=== PATIENT | male | born 1955 | race Caucasian/White ===

== ENCOUNTER 2016-12-29 07:47 | Emergency (ER) | payer MEDICARE ==
[2016-12-29] MEDS ORDERED: Sodium Chloride 0.9% 10 ML Syringe FLUSH PRN (08:02)
--- NOTE | 2016-12-29 08:14 | EDM.PDOC ---
ED HPI GENERAL MEDICAL PROBLEM - General Chief Complaint: Gastrointestinal Problem Stated Complaint: GI bleed Time Seen by Provider: 12/29/16 08:00 Source of Information: Reports: Patient History Limitations: Reports: No Limitations - History of Present Illness INITIAL COMMENTS - FREE TEXT/NARRATIVE: This is a 61yo M here for complaint of a GI Bleed. He has had this in the past. Patient states he has had upper GI bleeding from abdominal ulcers. Patient states he started feeling chills and sob yesterday and then this am had a BM with loose stools then a lot of dark blood in the Onset: Sudden Duration: Day(s):, Getting Worse Severity: Moderate Improves with: Reports: None Worsens with: Reports: None Associated Symptoms: Reports: No Other Symptoms - Related Data Allergies Allergy/AdvReac Type Severity Reaction Status Date / Time alprazolam [From Xanax] Allergy Intermediate Delusions Verified 12/29/16 08:38 Home Meds: Home Meds Allopurinol [Allopurinol] 300 mg PO DAILY PRN 06/17/14 [History] Carvedilol [Carvedilol] 1 tab PO BIDMEALS 06/17/14 [History] Nitroglycerin [Nitrostat] 1 tab SL ASDIRECTED PRN 06/17/14 [History] Omeprazole [Omeprazole] 20 mg PO BID 06/17/14 [History] Potassium Chloride 20 tab PO DAILY 06/17/14 [History] QUEtiapine Fumarate [Quetiapine Fumarate] 400 mg PO QPM 06/17/14 [History] traMADol HCl [Tramadol HCl] 50 mg PO TID PRN 06/17/14 [History] Bumetanide [Bumex] 1 mg PO DAILY 08/07/16 [History] LORazepam 0.5 mg PO TID 08/07/16 [History] Amiodarone [Cordarone] 200 mg PO DAILY 12/29/16 [History] Docusate Sodium [Doc-Q-Lace] 200 mg PO BID 12/29/16 [History] Lisinopril 2.5 mg PO DAILY 12/29/16 [History] atorvaSTATin [Lipitor] 10 mg PO DAILY 12/29/16 [History] Past Medical History HEENT History: Reports: Impaired Vision, Other (See Below) Other HEENT History: nearsighted and farsighted Cardiovascular History: Reports: Heart Failure, Hypertension, Pacemaker, Stents Respiratory History: Reports: COPD, Other (See Below) Other Respiratory History: Emphysema Gastrointestinal History: Reports: GI Bleed, PUD Genitourinary History: Reports: Renal Disease Musculoskeletal History: Reports: Arthritis, Back Pain, Chronic, Fracture, Neck Pain, Chronic Neurological History: Reports: TIA, Other (See Below) Other Neuro History: nerve damage because of the accident Psychiatric History: Reports: Anxiety Endocrine/Metabolic History: Reports: Diabetes, Type II - Infectious Disease History Infectious Disease History: Reports: Hepatitis C, Mumps - Past Surgical History Cardiovascular Surgical History: Reports: Carotid Stents Social & Family History - Family History Family Medical History: Noncontributory - Tobacco Use Smoking Status *Q: Current Every Day Smoker Years of Tobacco use: 50 Packs/Tins Daily: 1 Used Tobacco, but Quit: No - Caffeine Use Caffeine Use: Reports: Coffee - Alcohol Use Days Per Week of Alcohol Use: 0 - Recreational Drug Use Recreational Drug Use: No - Living Situation & Occupation Living situation: Reports: , Other Occupation: Disabled ED ROS GENERAL - Review of Systems Review Of Systems: ROS reveals no pertinent complaints other than HPI. ED EXAM, GI/ABD - Physical Exam Exam: See Below Exam Limited By: No Limitations General Appearance: Alert, WD/WN, Mild Distress Eyes: Bilateral: EOMI Ears: Normal External Exam Nose: Normal Inspection Throat/Mouth: Normal Inspection Head: Atraumatic, Normocephalic Neck: Normal Inspection Respiratory/Chest: No Respiratory Distress, Normal Breath Sounds, Decreased Breath Sounds Cardiovascular: Normal Peripheral Pulses, Regular Rate, Rhythm GI/Abdominal: Soft, Non-Tender, Hyperactive Bowel Sounds Back Exam: Normal Inspection Extremities: Normal Inspection Neurological: Alert, Oriented, CN II-XII Intact Psychiatric: Anxious Skin Exam: Warm, Dry, Intact EKG INTERPRETATION EKG Date: 12/29/16 Time: 08:11 (57seconds) ST-T: Elevated Comparison: No Change EKG Interpretation Comments: Consulted Dr. [employer] Emiliano Woodson and faxed Prior and current EKG. She stated there is no acute change and that this is a persistently elevated ST elevation. Course - Orders/Labs/Meds Orders: Active Orders 24 hr Category Date Time Status EKG Documentation Completion [RC] ASDIRECTED Care 12/29/16 08:03 Active Fecal Occult Blood Collection [RC] ASDIRECTED Care 12/29/16 08:33 Active Abdomen Pelvis wo Cont [CT] Stat Exams 12/29/16 08:03 Taken Chest 1V Frontal [CR] Stat Exams 12/29/16 08:05 Taken Peripheral IV Insertion Adult [OM.PC] Routine Oth 12/29/16 08:02 Ordered Labs: Laboratory Tests 12/29/16 12/29/16 12/29/16 Range/Units 08:15 08:20 08:20 WBC 14.8 H (4.0-11.0) K/uL RBC 3.66 L (4.50-6.50) M/uL Hgb 10.9 L (13.0-18.0) g/dL Hct 33.8 L (40.0-54.0) % MCV 92 (76-96) fL MCH 29.8 (27.0-32.0) pg MCHC 32.2 (31.0-35.0) g/dL RDW 16.8 H (11.0-16.0) % Plt Count 325 D (150-400) K/uL MPV 9.6 (6.0-10.0) fL Neut % (Auto) 71.5 H (45.0-70.0) % Lymph % (Auto) 20.4 (20.0-40.0) % [place] % (Auto) 6.8 (3.0-10.0) % Eos % (Auto) 1.1 (1.0-5.0) % Baso % (Auto) 0.2 (0.0-0.5) % Neut # (Auto) 10.58 H (2.00-7.50) K/uL Lymph # (Auto) 3.01 (1.50-4.00) K/uL [place] # (Auto) 1.01 H (0.20-0.80) K/uL Eos # (Auto) 0.16 (0.04-0.40) K/uL Baso # (Auto) 0.03 (0.02-0.10) K/uL PT 10.1 (9.0-11.5) sec INR 1.0 (1.0-3.5) Sodium 140 (136-145) mmol/L Potassium 4.5 (3.5-5.1) mmol/L Chloride 101 (98-107) mmol/L Carbon Dioxide 29.3 (21.0-32.0) mmol/L Anion Gap 14.2 (5.0-15.0) mmol/L BUN 31 H D (8-26) mg/dL Creatinine 1.58 H (0.70-1.30) mg/dL Est Cr Clr Drug Dosing TNP Estimated GFR (MDRD) 45 L (>60) MLS/MIN BUN/Creatinine Ratio 19.6 (6-25) Glucose 173 H D (74-100) mg/dL Calcium 8.4 L (8.5-10.1) mg/dL Total Bilirubin 0.2 D (0.0-1.0) mg/dL AST 19 (15-37) U/L ALT 15 (12-78) U/L Alkaline Phosphatase 126 H (46-116) U/L Troponin I 0.038 D (0.000-0.060) ng/mL B-Natriuretic Peptide 3092 H D (0-125) pg/mL Total Protein 6.4 (6.4-8.2) g/dL Albumin 2.5 L (3.4-5.0) g/dL Globulin 3.9 (2.2-4.2) g/dL Albumin/Globulin Ratio 0.6 L (0.8-2.0) Triglycerides 202 H D (30-150) mg/dL Cholesterol 167 D (120-200) mg/dL LDL Cholesterol, Calc 95 (0-130) mg/dL HDL Cholesterol 32 L (40-60) mg/dL Cholesterol/HDL Ratio 5.2 H (0.0-5.0) Meds: Medications Discontinued Medications Generic Name Dose Route Start Last Admin Trade Name Freq PRN Reason Stop Dose Admin Diatrizoate Meglum/Diatrizoate Sod 30 ml 12/29/16 08:15 12/29/16 08:28 Gastrografin 37% PO 30 ml . DIRECTED GIACOMO Administration Lorazepam 1 mg 12/29/16 12:30 Ativan IM 12/30/16 07:00 ONETIME PRN Agitation Ondansetron HCl Confirm 12/29/16 08:53 12/29/16 08:50 Zofran Administered 12/29/16 08:54 8 mg Dose Administration 8 mg .ROUTE .STK-MED ONE Sodium Chloride 10 ml 12/29/16 08:02 12/29/16 08:20 Saline Flush FLUSH 10 ml ASDIRECTED PRN Administration Keep Vein Open Departure - Departure Time of Disposition: 13:00 Disposition: DC/Tfer to Acute Hospital 02 Condition: Undetermined Clinical Impression: Anxiety, Anemia associated with acute blood loss, Lightheadedness COPD (chronic obstructive pulmonary disease) Qualifiers: COPD type: unspecified COPD Qualified Code(s): J44.9 - Chronic obstructive pulmonary disease, unspecified Congestive heart failure Qualifiers: Congestive heart failure type: unspecified congestive heart failure type Congestive heart failure chronicity: unspecified congestive heart failure chronicity Qualified Code(s): I50.9 - Heart failure, unspecified GI bleeding Qualifiers: GI bleed type/associated pathology: melena Qualified Code(s): K92.1 - Melena - Discharge Information Referrals: PCP,Unknown [Primary Care Provider] - Forms: ED Department Discharge - Problem List & Annotations (1) Anxiety SNOMED Code(s): 21427773 Code(s): F41.9 - ANXIETY DISORDER, UNSPECIFIED Status: Chronic Priority: High (2) Congestive heart failure SNOMED Code(s): 92388955 Code(s): I50.9 - HEART FAILURE, UNSPECIFIED Status: Chronic Priority: High Annotation/Comment:: 08/07/16 - 1. Congestive heart failure, 2. Chronic obstructive pulonary disease, 3. Possible early stage sepsis Qualifiers: Congestive heart failure type: unspecified congestive heart failure type Congestive heart failure chronicity: unspecified congestive heart failure chronicity Qualified Code(s): I50.9 - Heart failure, unspecified (3) COPD (chronic obstructive pulmonary disease) SNOMED Code(s): 77996913 Code(s): J44.9 - CHRONIC OBSTRUCTIVE PULMONARY DISEASE, UNSPECIFIED Status : Chronic Priority: High Annotation/Comment:: 08/07/16 - 1. Congestive heart failure, 2. Chronic obstructive pulonary disease, 3. Possible early stage sepsis Qualifiers: COPD type: unspecified COPD Qualified Code(s): J44.9 - Chronic obstructive pulmonary disease, unspecified (4) Anxiety SNOMED Code(s): 46361526 Code(s): F41.9 - ANXIETY DISORDER, UNSPECIFIED Status: Chronic Priority: High (5) Anemia associated with acute blood loss SNOMED Code(s): 570143532 Code(s): D62 - ACUTE POSTHEMORRHAGIC ANEMIA Status: Acute Priority: High (6) GI bleeding SNOMED Code(s): 86677055 Code(s): K92.2 - GASTROINTESTINAL HEMORRHAGE, UNSPECIFIED Status: Acute Priority: High Qualifiers: GI bleed type/associated pathology: melena Qualified Code(s): K92.1 - Melena - Problem List Review Problem List Initiated/Reviewed/Updated: Yes - My Orders Last 24 Hours: My Active Orders 12/29/16 08:02 Peripheral IV Insertion Adult [OM.PC] Routine 12/29/16 08:03 EKG Documentation Completion [RC] ASDIRECTED Abdomen Pelvis wo Cont [CT] Stat 12/29/16 08:05 Chest 1V Frontal [CR] Stat 12/29/16 08:33 Fecal Occult Blood Collection [RC] ASDIRECTED - Assessment/Plan Last 24 Hours: My Active Orders 12/29/16 08:02 Peripheral IV Insertion Adult [OM.PC] Routine 12/29/16 08:03 EKG Documentation Completion [RC] ASDIRECTED Abdomen Pelvis wo Cont [CT] Stat 12/29/16 08:05 Chest 1V Frontal [CR] Stat 12/29/16 08:33 Fecal Occult Blood Collection [RC] ASDIRECTED Plan: Patient transferred to [place]. Called [facility] and unable to accept due to no GI surgeon, called [facility] and no ability to type and cross for transfusion, [facility] accepted. Patient discharged in stable condition via [facility].
[2016-12-29] MEDS ORDERED: Diatrizoate Meglumine/Diatrizoate Sodium 37% 30 ML Bottle PO SCH (08:15)
[2016-12-29] MEDS ORDERED: Ondansetron 4 MG/2 ML SDV ONE (08:53)
[2016-12-29] MEDS ORDERED: LORazepam 2 MG/ML MDV IM PRN (12:30)
[2016-12-29] MEDS ORDERED: LORazepam 2 MG/ML MDV ONE ×2 (12:30)
--- NOTE | 2016-12-29 17:48 | CT ---
DATE OF SERVICE: 12/29/16 CLINICAL DATA: GI bleed UNENHANCED ABDOMEN AND PELVIC CT: Multislice acquisition through the abdomen and pelvis without IV, but with oral contrast was performed. Comparison is made to a prior unenhanced pelvic CT dated 09/27/16. There is a small right pleural effusion. There are emphysematous changes in both lower lungs. There are mild atelectatic changes in the dependent portion of both lower lungs and in both lung bases. There is an irregularly-shaped area of atelectasis with consolidation in the right middle lobe. Pneumonia should be considered. A developing malignancy cannot be completely excluded. There is a small hiatal hernia. There is mural thickening within the distal esophagus. Esophagitis should be considered. An infiltrating process cannot be completely excluded and endoscopy should be considered. The unenhanced liver appears normal. No focal hepatic lesions. The gallbladder is contracted but otherwise appears unremarkable. 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 The pancreas appears normal. There is a 1.9 cm low density lesion within the right adrenal gland. There is a 2.5 cm low density lesion within the left adrenal gland. These are most likely benign. There is cortical scarring in the posterior aspect of the right kidney. The kidneys otherwise appear normal. No nephrocalcinosis or nephrolithiasis. No hydronephrosis or hydroureter. There is a small amount of fluid within the bladder. There is apparent diffuse bladder wall thickening. This is most likely related to nondistension. The appendix is not dilated. No evidence of appendicitis. There is minimal diverticulosis of the sigmoid colon. No evidence of diverticulitis. The stomach is contrast and debris-filled and moderately distended. A gastric outlet obstruction should be considered. No gastric wall thickening. There is atrophy of both rectus abdominis muscles, right greater than left. No free air. No free fluid. No dilated loops of bowel. No adenopathy. The abdominal aorta is ectatic. No aneurysm. Its maximum diameter is 2.7 cm. IMPRESSION: 1) Small right pleural effusion. Area of atelectasis and consolidation in the right middle lobe. Pneumonia should be considered. A developing malignancy cannot be completely excluded and a followup CT scan in 3 to 4 months is recommended to evaluate for stability or resolution. 2) Mural thickening distal esophagus. Esophagitis or an infiltrating process should at least be considered. Endoscopy should be considered. 3) Distended stomach as discussed above. Gastric outlet obstruction cannot be excluded. 4) Low density lesions in both adrenals. These are most likely benign. [address] scan is recommended to confirm stability. 5) Other findings as discussed above. [id number] [facility]
--- NOTE | 2016-12-29 17:51 | CR ---
DATE OF SERVICE: 12/29/16 CLINICAL DATA: sob AP CHEST: Comparison is made to a prior exam dated 08/23/16. The patient has taken a poor inspiration. There is breathing motion artifact. The cardiac pacer and pacer wire is unchanged in position. The heart size is stable. There is increased density in both lower lungs consistent with basilar atelectasis or infiltrate. Pneumonia should be considered. The lungs are otherwise clear. No pneumothorax. No evidence of pleural effusion, however, the right costophrenic angle is cut off. No other significant findings. [id number]
== END 2016-12-29 13:26 ==
LOC: LB.ED 07:47
DX: K92.1 Melena (principal); J44.9 Chronic obstructive pulmonary disease, unspecified; F41.9 Anxiety disorder, unspecified; D62 Acute posthemorrhagic anemia; I11.0 Hypertensive heart disease with heart failure; I50.9 Heart failure, unspecified; E11.9 Type 2 diabetes mellitus without complications; F17.210 Nicotine dependence, cigarettes, uncomplicated; Z86.73 Personal history of transient ischemic attack (TIA), and cerebral infarction without residual deficits; Z79.899 Other long term (current) drug therapy; Z95.5 Presence of coronary angioplasty implant and graft; Z88.8 Allergy status to other drugs, medicaments and biological substances
CPT/HCPCS: 36415; 71010; 74176; 80053; 80061; 83880; 84484; 85025; 85610; 93005; 99285; A0425; A0429; A0888; A9270; J2405; J7050; J2060; J7040

== ENCOUNTER 2017-03-14 08:00 | Inpatient (IN) | payer MEDICARE ==
[2017-03-14] MEDS ORDERED: LORazepam 2 MG/ML MDV IM ONE (08:38)
[2017-03-14] MEDS ORDERED: Albuterol/Ipratropium 3.0-0.5 MG/3 ML Neb Soln NEB STA (08:39)
--- NOTE | 2017-03-14 08:45 | EDM.PDOC ---
ED HPI GENERAL MEDICAL PROBLEM - General Chief Complaint: Respiratory Problem Time Seen by Provider: 03/14/17 08:15 Source of Information: Reports: Patient History Limitations: Reports: No Limitations - History of Present Illness INITIAL COMMENTS - FREE TEXT/NARRATIVE: According to is nicotine dependent End stage COPD, with CHF with severe anxiety. According to patient he has been having shortness of breath since last night. No fever, cough, chest pain. He went to use bathroom today morning and he had to strain to have bowel movement, at which point he started to feel shortness of breath. pt claims he did have normal bowel movement, and shortness of breath got worse. He called ambulance. No chest pain or cheat tightness. No fever or chills.. Onset: Today Onset Date: 03/14/17 Onset Time: 08:00 Quality: Reports: Ache Severity: Moderate Improves with: Reports: None Worsens with: Reports: None Associated Symptoms: Reports: Shortness of Breath. Denies: Confusion, Chest Pain, Diaphoresis, Fever/Chills, Headaches, Loss of Appetite, Nausea/Vomiting, Rash, Seizure, Syncope, Weakness - Related Data Allergies Allergy/AdvReac Type Severity Reaction Status Date / Time alprazolam [From Xanax] Allergy Intermediate Delusions Verified 03/14/17 09:05 Home Meds: Home Meds Allopurinol [Allopurinol] 300 mg PO DAILY 06/17/14 [History] Carvedilol [Carvedilol] 1 tab PO BIDMEALS 06/17/14 [History] Nitroglycerin [Nitrostat] 1 tab SL ASDIRECTED PRN 06/17/14 [History] Omeprazole [Omeprazole] 20 mg PO BIDMEALS 06/17/14 [History] Potassium Chloride 20 tab PO BIDMEALS 06/17/14 [History] QUEtiapine Fumarate [Quetiapine Fumarate] 200 mg PO QPM 06/17/14 [History] traMADol HCl [Tramadol HCl] 50 mg PO TID PRN 06/17/14 [History] Bumetanide [Bumex] 1 mg PO DAILY 08/07/16 [History] LORazepam 0.5 mg PO DAILY 08/07/16 [History] Amiodarone [Cordarone] 200 mg PO DAILY 12/29/16 [History] Docusate Sodium [Doc-Q-Lace] 200 mg PO BID 12/29/16 [History] Lisinopril 2.5 mg PO DAILY 12/29/16 [History] atorvaSTATin [Lipitor] 10 mg PO DAILY 12/29/16 [History] Escitalopram [Lexapro] 10 mg PO DAILY 03/14/17 [History] QUEtiapine Fumarate [Quetiapine Fumarate] 200 mg PO QAM 03/14/17 [History] Past Medical History HEENT History: Reports: Impaired Vision, Other (See Below) Other HEENT History: nearsighted and farsighted Cardiovascular History: Reports: Heart Failure, Hypertension, Pacemaker, Stents Respiratory History: Reports: COPD, Other (See Below) Other Respiratory History: Emphysema Gastrointestinal History: Reports: GI Bleed, PUD Genitourinary History: Reports: Renal Disease Musculoskeletal History: Reports: Arthritis, Back Pain, Chronic, Fracture, Neck Pain, Chronic Neurological History: Reports: TIA, Other (See Below) Other Neuro History: nerve damage because of the accident Psychiatric History: Reports: Anxiety Endocrine/Metabolic History: Reports: Diabetes, Type II Hematologic History: Reports: Transfusion Reaction, Other (See Below) Other Hematologic History: Antibody issues - See Scan doc. - Infectious Disease History Infectious Disease History: Reports: Hepatitis C, Mumps - Past Surgical History Cardiovascular Surgical History: Reports: Carotid Stents Social & Family History - Family History Family Medical History: Noncontributory - Tobacco Use Smoking Status *Q: Current Every Day Smoker Years of Tobacco use: 50 Packs/Tins Daily: 1 Used Tobacco, but Quit: No Second Hand Smoke Exposure: Yes - Caffeine Use Caffeine Use: Reports: Coffee - Alcohol Use Days Per Week of Alcohol Use: 0 - Recreational Drug Use Recreational Drug Use: No - Living Situation & Occupation Living situation: Reports: , Other Occupation: Disabled ED ROS GENERAL - Review of Systems Review Of Systems: See Below Constitutional: Denies: Fever, Chills HEENT: Denies: Rhinitis, Throat Pain, Throat Swelling Respiratory: Reports: Shortness of Breath. Denies: Wheezing, Pleuritic Chest Pain, Cough, Sputum Cardiovascular: Denies: Chest Pain, Lightheadedness GI/Abdominal: Denies: Abdominal Pain, Nausea, Vomiting : Denies: Dysuria, Flank Pain Musculoskeletal: Denies: Neck Pain, Foot Pain, Joint Pain, Joint Swelling Skin: Reports: Diaphoresis. Denies: Pruritis, Rash Neurological: Denies: Confusion, Dizziness Psychiatric: Reports: Anxiety. Denies: Agitation, Confusion ED EXAM, GENERAL - Physical Exam Exam: See Below Exam Limited By: No Limitations General Appearance: Alert, WD/WN, No Apparent Distress, Anxious, Other ( sweating and hyperventilating) Eye Exam: Bilateral Eye: EOMI, PERRL Ears: Normal External Exam, Normal Canal, Hearing Grossly Normal, Normal TMs Ear Exam: Bilateral Ear: Auricle Normal, Canal Normal, TM normal Nose: Normal Inspection, Normal Mucosa, No Blood Throat/Mouth: Normal Inspection, Normal Lips, Normal Teeth, Normal Gums, Normal Oropharynx, Normal Voice, No Airway Compromise Head: Atraumatic, Normocephalic Neck: Normal Inspection, Supple, Non-Tender, Full Range of Motion Respiratory/Chest: Lungs Clear, No Accessory Muscle Use, Decreased Breath Sounds (B/l), Crackles (Basal crakles b/l, right wrose than left.), Wheezing Cardiovascular: Normal Peripheral Pulses, Tachycardia GI/Abdominal: Normal Bowel Sounds, Soft, Non-Tender, No Organomegaly, No Distention, No Abnormal Bruit Extremities: Normal Inspection, Normal Range of Motion, Non-Tender, Pedal Edema (1+ pitting) Neurological: Alert, Oriented Psychiatric: Normal Affect, Normal Mood, Anxious EKG INTERPRETATION EKG Date: 03/14/17 Rhythm: NSR [place]: Normal P-Wave: Present QRS: Normal ST-T: Normal QT: Normal Course - Vital Signs Text/Narrative:: Pt is in anxiety episode presently. His SPO2 is 100% on oxygen. But he is sweating and hyperventilating. Did try paper bag breathing. Did receive ativan 1mg IM. Pt did settle down and his breathing and SPO2 improved. He does have crackles and rhonchi in the right base. He did receive duoneb treatment in the emergency room.His Chest xray does show new infiltrate in right lower lobe.His white count is 18.7 K. HE is able to maintain his SPO2 around 90s with 4 litre of oxygen. Apparently patient has right lower lobe pneumonia with end stage COPD with hypoxia, needing increased oxygen requirement. Plan is to admit patient to hospital , start him on rocephin and zithromax , IV. Also get blood culture. Will continue home meds. Will keep him on duonebs every 6 hrs PRN.Also patient for some reason has stopped his Advair, will restart adviar BID. Deni closely monitor patient and also repeat CBC in Am. Last Recorded V/S: Last Vital Signs Temp 96.9 F 03/14/17 08:49 Pulse 94 03/14/17 09:27 Resp 24 H 03/14/17 09:27 BP 172/82 H 03/14/17 09:27 Pulse Ox 90 L 03/14/17 09:27 - Orders/Labs/Meds Orders: Active Orders 24 hr Category Date Time Status EKG Documentation Completion [RC] ASDIRECTED Care 03/14/17 08:36 Active RT Aerosol Therapy [RC] ASDIRECTED Care 03/14/17 08:39 Active Chest 1V Frontal [CR] Stat Exams 03/14/17 08:37 Taken CULTURE BLOOD [BC] Stat Lab 03/14/17 10:00 Received Medication Orders Albuterol/Ipratropium (Duoneb 3.0-0.5 Mg/3 Ml) 3 ml NEB Q6H [facility] Allopurinol (Zyloprim) 300 mg PO DAILY [facility] Amiodarone HCl (Cordarone) 200 mg PO DAILY [facility] Atorvastatin Calcium (Lipitor) 10 mg PO DAILY [facility] Bumetanide (Bumex) 1 mg PO DAILY [facility] Carvedilol (Coreg) 6.25 mg PO BIDMEALS [facility] Docusate Sodium (Colace) 200 mg PO BID [facility] Escitalopram Oxalate (Lexapro) 10 mg PO DAILY [facility] Azithromycin 500 mg/ Sodium (Chloride) 250 mls @ 250 mls/hr IV Q24H [facility] Ceftriaxone Sodium 1 gm/ (Sodium Chloride) 50 mls @ 100 mls/hr IV Q12H [facility] Lisinopril (Prinivil) 2.5 mg PO DAILY [facility] Lorazepam (Ativan) 0.5 mg PO DAILY [facility] Nitroglycerin (Nitrostat) 0.4 mg SL ASDIRECTED PRN PRN Reason: Chest Pain Non-Formulary Medication (Potassium Chloride [Potassium Chloride]) 20 tab PO BIDMEALS [facility] Omeprazole (Omeprazole) 20 mg PO BIDMEALS [facility] Quetiapine Fumarate (Seroquel) 200 mg PO QAM [facility] Quetiapine Fumarate (Seroquel) 200 mg PO QPM [facility] Sodium Chloride (Saline Flush) 10 ml FLUSH ASDIRECTED PRN PRN Reason: Keep Vein Open Tramadol HCl (Ultram) 50 mg PO TID PRN PRN Reason: Pain Labs: Laboratory Tests 03/14/17 03/14/17 Range/Units 08:45 08:45 WBC 18.2 H D (4.0-11.0) K/uL RBC 4.25 L (4.50-6.50) M/uL Hgb 10.3 L (13.0-18.0) g/dL Hct 34.9 L (40.0-54.0) % MCV 82 (76-96) fL MCH 24.2 L (27.0-32.0) pg MCHC 29.5 L (31.0-35.0) g/dL RDW 20.6 H (11.0-16.0) % Plt Count 494 H D (150-400) K/uL MPV 10.0 (6.0-10.0) fL Neut % (Auto) 67.2 (45.0-70.0) % Lymph % (Auto) 23.1 (20.0-40.0) % [place] % (Auto) 8.3 (3.0-10.0) % Eos % (Auto) 1.2 (1.0-5.0) % Baso % (Auto) 0.2 (0.0-0.5) % Neut # (Auto) 12.26 H (2.00-7.50) K/uL Lymph # (Auto) 4.21 H (1.50-4.00) K/uL [place] # (Auto) 1.51 H (0.20-0.80) K/uL Eos # (Auto) 0.21 (0.04-0.40) K/uL Baso # (Auto) 0.03 (0.02-0.10) K/uL Sodium 140 (136-145) mmol/L Potassium 4.5 (3.5-5.1) mmol/L Chloride 101 (98-107) mmol/L Carbon Dioxide 31.5 (21.0-32.0) mmol/L Anion Gap 12.0 (5.0-15.0) mmol/L BUN 21 D (8-26) mg/dL Creatinine 1.36 H (0.70-1.30) mg/dL Est Cr Clr Drug Dosing TNP Estimated GFR (MDRD) 53 L (>60) MLS/MIN BUN/Creatinine Ratio 15.4 (6-25) Glucose 209 H (74-100) mg/dL Calcium 8.6 (8.5-10.1) mg/dL Total Bilirubin 0.2 (0.0-1.0) mg/dL AST 16 (15-37) U/L ALT 16 (12-78) U/L Alkaline Phosphatase 165 H (46-116) U/L Troponin I 0.060 D (0.000-0.060) ng/mL Total Protein 8.1 (6.4-8.2) g/dL Albumin 3.1 L (3.4-5.0) g/dL Globulin 5.0 H (2.2-4.2) g/dL Albumin/Globulin Ratio 0.6 L (0.8-2.0) Meds: Medications Generic Name Dose Route Start Last Admin Trade Name Freq PRN Reason Stop Dose Admin Albuterol/Ipratropium 3 ml 03/14/17 10:00 Duoneb 3.0-0.5 Mg/3 Ml NEB Q6H [facility] Allopurinol 300 mg 03/15/17 08:00 Zyloprim PO DAILY [facility] Amiodarone HCl 200 mg 03/15/17 08:00 Cordarone PO DAILY [facility] Atorvastatin Calcium 10 mg 03/15/17 08:00 Lipitor PO DAILY [facility] Bumetanide 1 mg 03/15/17 08:00 Bumex PO DAILY [facility] Carvedilol 6.25 mg 03/14/17 17:00 Coreg PO BIDMEALS [facility] Docusate Sodium 200 mg 03/14/17 20:00 Colace PO BID [facility] Escitalopram Oxalate 10 mg 03/15/17 08:00 Lexapro PO DAILY [facility] Azithromycin 500 mg/ Sodium 250 mls @ 250 mls/hr 03/14/17 10:15 Chloride IV Q24H [facility] Ceftriaxone Sodium 1 gm/ 50 mls @ 100 mls/hr 03/14/17 11:00 Sodium Chloride IV Q12H [facility] Lisinopril 2.5 mg 03/15/17 08:00 Prinivil PO DAILY [facility] Lorazepam 0.5 mg 03/15/17 08:00 Ativan PO DAILY [facility] Nitroglycerin 0.4 mg 03/14/17 10:06 Nitrostat SL ASDIRECTED PRN Chest Pain Non-Formulary Medication 20 tab 03/14/17 17:00 Potassium Chloride [Potassium Chloride] PO BIDMEALS [facility] Omeprazole 20 mg 03/14/17 17:00 Omeprazole PO BIDMEALS [facility] Quetiapine Fumarate 200 mg 03/15/17 08:00 Seroquel PO QAM [facility] Quetiapine Fumarate 200 mg 03/14/17 20:00 Seroquel PO QPM [facility] Sodium Chloride 10 ml 03/14/17 09:58 Saline Flush FLUSH ASDIRECTED PRN Keep Vein Open Tramadol HCl 50 mg 03/14/17 10:06 Ultram PO TID PRN Pain Discontinued Medications Generic Name Dose Route Start Last Admin Trade Name Freq PRN Reason Stop Dose Admin Albuterol/Ipratropium 3 ml 03/14/17 08:39 03/14/17 08:34 Duoneb 3.0-0.5 Mg/3 Ml NEB 03/14/17 08:40 3 ml ONETIME STA Administration Albuterol/Ipratropium 3 ml 03/14/17 10:15 Duoneb 3.0-0.5 Mg/3 Ml NEB Q6H [facility] Lorazepam 1 mg 03/14/17 08:38 03/14/17 08:36 Ativan IM 03/14/17 08:39 1 mg ONETIME ONE Administration Departure - Departure Time of Disposition: 10:00 Disposition: Admitted As Inpatient 64 Condition: Fair Clinical Impression: Right lower lobe pneumonia, Hypoxia COPD (chronic obstructive pulmonary disease) Qualifiers: COPD type: unspecified COPD Qualified Code(s): J44.9 - Chronic obstructive pulmonary disease, unspecified - Discharge Information - Problem List & Annotations (1) Hypoxia SNOMED Code(s): 786106093, 043504024 Code(s): R09.02 - HYPOXEMIA Status: Acute Current Visit: Yes (2) Right lower lobe pneumonia SNOMED Code(s): 929417616 Code(s): J18.1 - LOBAR PNEUMONIA, UNSPECIFIED ORGANISM Status: Acute Current Visit: Yes (3) COPD (chronic obstructive pulmonary disease) SNOMED Code(s): 95096319 Code(s): J44.9 - CHRONIC OBSTRUCTIVE PULMONARY DISEASE, UNSPECIFIED Status : Chronic Priority: High Current Visit: Yes Annotation/Comment:: 08/07/16 - 1. Congestive heart failure, 2. Chronic obstructive pulonary disease, 3. Possible early stage sepsis Qualifiers: COPD type: unspecified COPD Qualified Code(s): J44.9 - Chronic obstructive pulmonary disease, unspecified - Problem List Review Problem List Initiated/Reviewed/Updated: Yes - My Orders Last 24 Hours: My Active Orders 03/14/17 08:36 EKG Documentation Completion [RC] ASDIRECTED 03/14/17 08:37 Chest 1V Frontal [CR] Stat 03/14/17 08:39 RT Aerosol Therapy [RC] ASDIRECTED 03/14/17 10:00 CULTURE BLOOD [BC] Stat - Assessment/Plan Last 24 Hours: My Active Orders 03/14/17 08:36 EKG Documentation Completion [RC] ASDIRECTED 03/14/17 08:37 Chest 1V Frontal [CR] Stat 03/14/17 08:39 RT Aerosol Therapy [RC] ASDIRECTED 03/14/17 10:00 CULTURE BLOOD [BC] Stat Assessment:: Right lower lobe pneumonia COPD Hypoxia Plan: Pt is in anxiety episode presently. His SPO2 is 100% on oxygen. But he is sweating and hyperventilating. Did try paper bag breathing. Did receive ativan 1mg IM. Pt did settle down and his breathing and SPO2 improved. He does have crackles and rhonchi in the right base. He did receive duoneb treatment in the emergency room.His Chest xray does show new infiltrate in right lower lobe.His white count is 18.7 K. HE is able to maintain his SPO2 around 90s with 4 litre of oxygen. Apparently patient has right lower lobe pneumonia with end stage COPD with hypoxia, needing increased oxygen requirement. Plan is to admit patient to hospital , start him on rocephin and zithromax , IV. Also get blood culture. Will continue home meds. Will keep him on duonebs every 6 hrs PRN.Also patient for some reason has stopped his Advair, will restart adviar BID. Deni closely monitor patient and also repeat CBC in Am.
[2017-03-14] MEDS: Bumetanide 1 MG Tab PO SCH (09:45)
[2017-03-14] MEDS ORDERED: Sodium Chloride 0.9% 10 ML Syringe FLUSH PRN (09:58)
[2017-03-14] MEDS ORDERED: Albuterol/Ipratropium 3.0-0.5 MG/3 ML Neb Soln NEB SCH ×2 (10:00→10:15)
[2017-03-14] MEDS ORDERED: traMADol 50 MG Tab PO PRN (10:06)
[2017-03-14] MEDS ORDERED: Nitroglycerin 0.4 MG Tab.SL SL PRN (10:06)
[2017-03-14] MEDS: Azithromycin 500 MG in Sodium Chloride 0.9% 250 ML IV SCH (10:39)
--- NOTE | 2017-03-14 10:54 | CR ---
DATE OF SERVICE: 03/14/2017 CLINICAL DATA: SOB. AP CHEST Comparison is made to a prior exam dated 12/29/2016. The cardiac pacer and pacer wires remain unchanged in position. The heart is mildly enlarged. It has increased in size from the prior exam. There is pulmonary vascular congestion and bilateral interstitial edema. These findings are consistent with congestive failure. There are densities in both lung bases consistent with basilar atelectasis or infiltrate. Pneumonia should be considered. There is slight blunting of the left costophrenic angle consistent with a small left pleural effusion. The exam is otherwise unchanged from the prior. [id number] [facility]
[2017-03-14] MEDS: cefTRIAXone 1 GM in Sodium Chloride 0.9% 50 ML IV SCH ×2 (11:52→23:39)
[2017-03-14] MEDS ORDERED: Fluticasone Propionate 110 MCG/Puff 12 GM Inhaler INH SCH (14:00)
[2017-03-14] MEDS: traMADol 50 MG Tab PO SCH ×2 (14:00→19:43)
[2017-03-14] MEDS: Albuterol/Ipratropium 3.0-0.5 MG/3 ML Neb Soln NEB SCH ×2 (14:02→19:44)
[2017-03-14] MEDS: Potassium Chloride 20 MEQ Tab.ER PO SCH (16:31)
[2017-03-14] MEDS: Omeprazole 20 MG Cap.CR PO SCH (16:32)
[2017-03-14] MEDS: Carvedilol 6.25 MG Tab PO SCH (16:32)
[2017-03-14] MEDS ORDERED: POTASSIUM CHLORIDE PO SCH (17:00)
[2017-03-14] MEDS ORDERED: Omeprazole 20 MG Cap.CR PO SCH (17:00)
[2017-03-14] MEDS: Docusate Sodium 100 MG Cap PO SCH (19:41)
[2017-03-14] MEDS: Fluticasone Propionate 220 MCG/Puff 12 GM Inhaler INH SCH (19:47)
[2017-03-15] MEDS: Albuterol/Ipratropium 3.0-0.5 MG/3 ML Neb Soln NEB SCH ×4 (03:30→19:53)
[2017-03-15] MEDS: Omeprazole 20 MG Cap.CR PO SCH ×2 (07:21→16:58)
[2017-03-15] MEDS: LORazepam 0.5 MG Tab PO SCH (07:50)
[2017-03-15] MEDS: Docusate Sodium 100 MG Cap PO SCH ×2 (07:50→19:55)
[2017-03-15] MEDS: Bumetanide 1 MG Tab PO SCH (07:51)
[2017-03-15] MEDS: atorvaSTATin 10 MG Tab PO SCH (07:51)
[2017-03-15] MEDS: Escitalopram 20 MG Tab PO SCH (07:51)
[2017-03-15] MEDS: Allopurinol 300 MG Tab PO SCH (07:51)
[2017-03-15] MEDS: Potassium Chloride 20 MEQ Tab.ER PO SCH ×3 (07:52→17:03)
[2017-03-15] MEDS: Carvedilol 6.25 MG Tab PO SCH ×2 (07:52→16:59)
[2017-03-15] MEDS: traMADol 50 MG Tab PO SCH ×3 (07:53→19:55)
[2017-03-15] MEDS: Lisinopril 2.5 MG Tab PO SCH (07:53)
[2017-03-15] MEDS: Amiodarone 200 MG Tab PO SCH (07:55)
[2017-03-15] MEDS: Fluticasone Propionate 220 MCG/Puff 12 GM Inhaler INH SCH ×2 (08:08→19:54)
[2017-03-15] MEDS ORDERED: FLU Vacc QS 2017-18 (36mos UP)/PF 60 MCG/0.5 ML Syringe IM ONE (09:00)
[2017-03-15] MEDS: cefTRIAXone 1 GM in Sodium Chloride 0.9% 50 ML IV SCH ×2 (12:00→23:45)
[2017-03-15] MEDS: Azithromycin 500 MG in Sodium Chloride 0.9% 250 ML IV SCH (12:32)
--- NOTE | 2017-03-15 17:10 | PCM.PN ---
- General Info Date of Service: 03/15/17 Functional Status: Reports: Pain Controlled, Tolerating Diet - Review of Systems General: Reports: Fatigue HEENT: Reports: No Symptoms Pulmonary: Reports: Shortness of Breath Cardiovascular: Reports: No Symptoms Gastrointestinal: Reports: No Symptoms Genitourinary: Reports: No Symptoms Musculoskeletal: Reports: No Symptoms Skin: Reports: No Symptoms Neurological: Reports: No Symptoms - Patient Data Vitals - Most Recent: Last Vital Signs Temp 37.2 C 03/15/17 16:00 Pulse 70 03/15/17 16:59 Resp 16 03/15/17 16:00 BP 123/67 03/15/17 16:59 Pulse Ox 92 L 03/15/17 16:00 Weight - Most Recent: 81.737 kg I&O - Last 24 Hours: Intake & Output 03/15/17 03/15/17 03/15/17 06:59 14:59 22:59 Intake Total 650 Output Total 175 Balance 475 Lab Results Last 24 Hours: Laboratory Results - last 24 hr 03/15/17 Range/Units 07:10 WBC 13.9 H D (4.0-11.0) K/uL RBC 4.03 L (4.50-6.50) M/uL Hgb 9.8 L (13.0-18.0) g/dL Hct 32.7 L (40.0-54.0) % MCV 81 (76-96) fL MCH 24.3 L (27.0-32.0) pg MCHC 30.0 L (31.0-35.0) g/dL RDW 20.3 H (11.0-16.0) % Plt Count 477 H (150-400) K/uL MPV 9.8 (6.0-10.0) fL Neut % (Auto) 63.8 (45.0-70.0) % Lymph % (Auto) 23.8 (20.0-40.0) % [place] % (Auto) 10.2 H (3.0-10.0) % Eos % (Auto) 2.0 (1.0-5.0) % Baso % (Auto) 0.2 (0.0-0.5) % Neut # (Auto) 8.86 H (2.00-7.50) K/uL Lymph # (Auto) 3.31 (1.50-4.00) K/uL [place] # (Auto) 1.42 H (0.20-0.80) K/uL Eos # (Auto) 0.28 (0.04-0.40) K/uL Baso # (Auto) 0.03 (0.02-0.10) K/uL [place] Results Last 24 Hours: Microbiology 03/14/17 10:00 Aerobic Blood Culture - Preliminary Blood NO GROWTH AFTER 1 DAY Anaerobic Blood Culture - Preliminary NO GROWTH AFTER 1 DAY 03/14/17 10:30 MRSA Surveillance Culture - Final Nares, Left NO MRSA ISOLATED Med Orders - Current: Current Medications Albuterol/Ipratropium (Duoneb 3.0-0.5 Mg/3 Ml) 3 ml NEB Q6H [facility] Last Admin: 03/15/17 13:47 Dose: 3 ml Allopurinol (Zyloprim) 300 mg PO DAILY [facility] Last Admin: 03/15/17 07:51 Dose: 300 mg Amiodarone HCl (Cordarone) 200 mg PO DAILY [facility] Last Admin: 03/15/17 07:55 Dose: 200 mg Atorvastatin Calcium (Lipitor) 10 mg PO DAILY [facility] Last Admin: 03/15/17 07:51 Dose: 10 mg Bumetanide (Bumex) 1 mg PO DAILY [facility] Last Admin: 03/15/17 07:51 Dose: 1 mg Carvedilol (Coreg) 6.25 mg PO BIDMEALS [facility] Last Admin: 03/15/17 16:59 Dose: 6.25 mg Docusate Sodium (Colace) 200 mg PO BID [facility] Last Admin: 03/15/17 07:50 Dose: 200 mg Escitalopram Oxalate (Lexapro) 10 mg PO DAILY [facility] Last Admin: 03/15/17 07:51 Dose: 10 mg Fluticasone Propionate (Flovent Hfa 220 Mcg) 0 gm INH BID [facility] Last Admin: 03/15/17 08:08 Dose: 1 puff Azithromycin 500 mg/ Sodium (Chloride) 250 mls @ 250 mls/hr IV Q24H [facility] Last Admin: 03/15/17 12:32 Dose: 250 mls/hr Ceftriaxone Sodium 1 gm/ (Sodium Chloride) 50 mls @ 100 mls/hr IV Q12H [facility] Last Admin: 03/15/17 12:00 Dose: 100 mls/hr Lisinopril (Prinivil) 2.5 mg PO DAILY [facility] Last Admin: 03/15/17 07:53 Dose: 2.5 mg Lorazepam (Ativan) 0.5 mg PO DAILY [facility] Last Admin: 03/15/17 07:50 Dose: 0.5 mg Nitroglycerin (Nitrostat) 0.4 mg SL ASDIRECTED PRN PRN Reason: Chest Pain Omeprazole (Omeprazole) 20 mg PO BID@0700,1600 [facility] Last Admin: 03/15/17 16:58 Dose: 20 mg Potassium Chloride (Klor-Con M20) 20 meq PO BIDMEALS [facility] Last Admin: 03/15/17 17:03 Dose: Not Given Quetiapine Fumarate (Seroquel) 200 mg PO QAM [facility] Last Admin: 03/15/17 08:08 Dose: 200 mg Quetiapine Fumarate (Seroquel) 400 mg PO QPM [facility] Last Admin: 03/14/17 19:41 Dose: 400 mg Sodium Chloride (Saline Flush) 10 ml FLUSH ASDIRECTED PRN PRN Reason: Keep Vein Open Last Admin: 03/14/17 23:34 Dose: 10 ml Tramadol HCl (Ultram) 50 mg PO TID [facility] Last Admin: 03/15/17 13:47 Dose: 50 mg Discontinued Medications Albuterol/Ipratropium (Duoneb 3.0-0.5 Mg/3 Ml) 3 ml NEB ONETIME STA Stop: 03/14/17 08:40 Last Admin: 03/14/17 08:34 Dose: 3 ml Albuterol/Ipratropium (Duoneb 3.0-0.5 Mg/3 Ml) 3 ml NEB Q6H [facility] Last Admin: 03/14/17 12:21 Dose: Not Given Albuterol/Ipratropium (Duoneb 3.0-0.5 Mg/3 Ml) 3 ml NEB Q6H [facility] Last Admin: 03/14/17 10:41 Dose: Not Given Fluticasone Propionate (Flovent Hfa 110 Mcg) 0 gm INH BID [facility] Last Admin: 03/14/17 14:26 Dose: 2 inhalation Lorazepam (Ativan) 1 mg IM ONETIME ONE Stop: 03/14/17 08:39 Last Admin: 03/14/17 08:36 Dose: 1 mg Non-Formulary Medication (Potassium Chloride [Potassium Chloride]) 20 tab PO BIDMEALS [facility] Omeprazole (Omeprazole) 20 mg PO BIDMEALS [facility] Quetiapine Fumarate (Seroquel) 200 mg PO QPM [facility] Tramadol HCl (Ultram) 50 mg PO TID PRN PRN Reason: Pain Last Admin: 03/14/17 09:45 Dose: 50 mg - Exam Quality Assessment: Supplemental Oxygen General: Alert, Oriented, Cooperative HEENT: Pupils Equal, Pupils Reactive, EOMI Neck: Supple Lungs: Decreased Breath Sounds, Rhonchi Cardiovascular: Regular Rhythm, Tachycardia GI/Abdominal Exam: Normal Bowel Sounds Back Exam: Normal Inspection Extremities: Normal Inspection, Normal Range of Motion Peripheral Pulses: 2+: Dorsalis Pedis (L), Dorsalis Pedis (R) Skin: Warm, Dry, Intact Neurological: No New Focal Deficit Psy/Mental Status: Alert, Normal Affect, Normal Mood - Problem List & Annotations (1) Hypoxia SNOMED Code(s): 477990489, 015479282 Code(s): R09.02 - HYPOXEMIA Status: Acute Current Visit: Yes (2) Right lower lobe pneumonia SNOMED Code(s): 533859250 Code(s): J18.1 - LOBAR PNEUMONIA, UNSPECIFIED ORGANISM Status: Acute Current Visit: Yes (3) COPD (chronic obstructive pulmonary disease) SNOMED Code(s): 87921301 Code(s): J44.9 - CHRONIC OBSTRUCTIVE PULMONARY DISEASE, UNSPECIFIED Status : Chronic Priority: High Current Visit: Yes Qualifiers: COPD type: unspecified COPD Qualified Code(s): J44.9 - Chronic obstructive pulmonary disease, unspecified Annotation/Comment:: 08/07/16 - 1. Congestive heart failure, 2. Chronic obstructive pulonary disease, 3. Possible early stage sepsis (4) Anxiety SNOMED Code(s): 07378040 Code(s): F41.9 - ANXIETY DISORDER, UNSPECIFIED Status: Acute Current Visit: No (5) CHF (congestive heart failure), NYHA class III SNOMED Code(s): 293890361, 248217205 Code(s): I50.9 - HEART FAILURE, UNSPECIFIED Status: Acute Current Visit: No Qualifiers: Congestive heart failure type: systolic Congestive heart failure chronicity : chronic Qualified Code(s): I50.22 - Chronic systolic (congestive) heart failure (6) Chronic renal disease SNOMED Code(s): 045418315 Code(s): N18.9 - CHRONIC KIDNEY DISEASE, UNSPECIFIED Status: Acute Current Visit: No Qualifiers: Chronic kidney disease stage: stage 3 (moderate) Qualified Code(s): N18.3 - Chronic kidney disease, stage 3 (moderate) - Problem List Review Problem List Initiated/Reviewed/Updated: Yes - Plan Plan:: Patient counseled on current management. Patient states he would like to go home. Discussed discharge planning and repeat am labs. F/u in am.
[2017-03-16] MEDS: Albuterol/Ipratropium 3.0-0.5 MG/3 ML Neb Soln NEB SCH ×2 (05:42→07:47)
[2017-03-16] MEDS: Omeprazole 20 MG Cap.CR PO SCH (07:41)
[2017-03-16] MEDS: Docusate Sodium 100 MG Cap PO SCH (07:42)
[2017-03-16] MEDS: Allopurinol 300 MG Tab PO SCH (07:42)
[2017-03-16] MEDS: Lisinopril 2.5 MG Tab PO SCH (07:42)
[2017-03-16] MEDS: atorvaSTATin 10 MG Tab PO SCH (07:43)
[2017-03-16] MEDS: Carvedilol 6.25 MG Tab PO SCH (07:43)
[2017-03-16] MEDS: LORazepam 0.5 MG Tab PO SCH (07:43)
[2017-03-16] MEDS: Amiodarone 200 MG Tab PO SCH (07:44)
[2017-03-16] MEDS: Escitalopram 20 MG Tab PO SCH (07:44)
[2017-03-16] MEDS: Potassium Chloride 20 MEQ Tab.ER PO SCH (07:45)
[2017-03-16] MEDS: traMADol 50 MG Tab PO SCH (07:45)
[2017-03-16] MEDS: Bumetanide 1 MG Tab PO SCH (07:45)
[2017-03-16] MEDS: Fluticasone Propionate 220 MCG/Puff 12 GM Inhaler INH SCH (07:46)
[2017-03-16] MEDS: Azithromycin 500 MG in Sodium Chloride 0.9% 250 ML IV SCH (09:28)
--- NOTE | 2017-03-16 10:24 | PCM.DCSUM1 ---
Discharge Summary - Discharge Data Discharge Date: 03/16/17 Discharge Disposition: Home, Self-Care 01 Condition: Good - Discharge Diagnosis/Problem(s) (1) Hypoxia SNOMED Code(s): 421413833, 259178579 ICD Code: R09.02 - HYPOXEMIA Status: Resolved Priority: High Current Visit: Yes (2) Right lower lobe pneumonia SNOMED Code(s): 766401419 ICD Code: J18.1 - LOBAR PNEUMONIA, UNSPECIFIED ORGANISM Status: Resolved Priority: High Current Visit: Yes Qualifiers: Pneumonia type: due to unspecified organism Qualified Code(s): J18.1 - Lobar pneumonia, unspecified organism (3) COPD (chronic obstructive pulmonary disease) SNOMED Code(s): 65327599 ICD Code: J44.9 - CHRONIC OBSTRUCTIVE PULMONARY DISEASE, UNSPECIFIED Status : Chronic Priority: High Current Visit: Yes Problem Details: 08/07/16 - 1. Congestive heart failure, 2. Chronic obstructive pulonary disease, 3. Possible early stage sepsis Qualifiers: COPD type: unspecified COPD Qualified Code(s): J44.9 - Chronic obstructive pulmonary disease, unspecified (4) Anxiety SNOMED Code(s): 22602761 ICD Code: F41.9 - ANXIETY DISORDER, UNSPECIFIED Status: Chronic Current Visit: No (5) CHF (congestive heart failure), NYHA class III SNOMED Code(s): 053773675, 594957265 ICD Code: I50.9 - HEART FAILURE, UNSPECIFIED Status: Chronic Current Visit: No Qualifiers: Congestive heart failure type: systolic Congestive heart failure chronicity : chronic Qualified Code(s): I50.22 - Chronic systolic (congestive) heart failure (6) Chronic renal disease SNOMED Code(s): 866697071 ICD Code: N18.9 - CHRONIC KIDNEY DISEASE, UNSPECIFIED Status: Acute Current Visit: No Qualifiers: Chronic kidney disease stage: stage 3 (moderate) Qualified Code(s): N18.3 - Chronic kidney disease, stage 3 (moderate) - Patient Instructions Diet: Usual Diet as Tolerated Activity: As Tolerated Driving: Do Not Drive Notify Provider of: Fever, Nausea and/or Vomiting - Discharge Plan Home Medications: Home Meds Allopurinol 300 mg PO DAILY 06/17/14 [History] Carvedilol 1 tab PO BIDMEALS 06/17/14 [History] Nitroglycerin [Nitrostat] 1 tab SL ASDIRECTED PRN 06/17/14 [History] Omeprazole 20 mg PO BIDMEALS 06/17/14 [History] Potassium Chloride 20 meq PO BIDMEALS 06/17/14 [History] QUEtiapine Fumarate [Quetiapine Fumarate] 400 mg PO QPM 06/17/14 [History] traMADol HCl [Tramadol HCl] 50 mg PO TID 06/17/14 [History] Bumetanide [Bumex] 1 mg PO DAILY 08/07/16 [History] LORazepam 0.5 mg PO DAILY 08/07/16 [History] Amiodarone [Cordarone] 200 mg PO DAILY 12/29/16 [History] Docusate Sodium [Doc-Q-Lace] 200 mg PO BID 12/29/16 [History] Lisinopril 2.5 mg PO DAILY 12/29/16 [History] atorvaSTATin [Lipitor] 10 mg PO DAILY 12/29/16 [History] Escitalopram [Lexapro] 10 mg PO DAILY 03/14/17 [History] QUEtiapine Fumarate [Quetiapine Fumarate] 200 mg PO QAM 03/14/17 [History] Fluticasone Propionate [Flovent HFA 220 MCG] 0 gm INH BID inhaler 03/16/17 [Rx] Patient Handouts: Antibiotic Medicine, Community-Acquired Pneumonia, Adult, [id number] Forms: ED Department Discharge Referrals: PCP,None [Ordering Only Provider] - - Discharge Summary/Plan Comment DC Time >30 min.: Yes Discharge Summary/Plan Comment: Patient counseled on close monitoring of symptoms for any recurrence or increased sob, fever, chills. Patient meds to remain the same and augmentin for 10 days prescribed and sent to [facility]. F/u in clinic as directed for recheck and exam. Patient agrees with f/u plan and care. - Patient Data Vitals - Most Recent: Last Vital Signs Temp 36.7 C 03/16/17 00:00 Pulse 86 03/16/17 07:43 Resp 18 03/16/17 00:00 BP 152/80 H 03/16/17 07:43 Pulse Ox 90 L 03/16/17 00:00 Weight - Most Recent: 81.737 kg I&O - Last 24 hours: Intake & Output 03/15/17 03/16/17 03/16/17 22:59 06:59 14:59 Intake Total 1310 1292 Output Total 350 Balance 960 1292 Lab Results - Last 24 hrs: Laboratory Results - last 24 hr 03/16/17 03/16/17 Range/Units 07:20 07:20 WBC 12.7 H (4.0-11.0) K/uL RBC 3.86 L (4.50-6.50) M/uL Hgb 9.3 L (13.0-18.0) g/dL Hct 31.2 L (40.0-54.0) % MCV 81 (76-96) fL MCH 24.1 L (27.0-32.0) pg MCHC 29.8 L (31.0-35.0) g/dL RDW 20.2 H (11.0-16.0) % Plt Count 419 H (150-400) K/uL MPV 9.8 (6.0-10.0) fL Neut % (Auto) 51.7 (45.0-70.0) % Lymph % (Auto) 29.8 (20.0-40.0) % Baldwin % (Auto) 15.1 H (3.0-10.0) % Eos % (Auto) 2.9 (1.0-5.0) % Baso % (Auto) 0.5 (0.0-0.5) % Neut # (Auto) 6.57 (2.00-7.50) K/uL Lymph # (Auto) 3.78 (1.50-4.00) K/uL Baldwin # (Auto) 1.91 H (0.20-0.80) K/uL Eos # (Auto) 0.37 (0.04-0.40) K/uL Baso # (Auto) 0.06 (0.02-0.10) K/uL Sodium 139 (136-145) mmol/L Potassium 4.2 (3.5-5.1) mmol/L Chloride 102 (98-107) mmol/L Carbon Dioxide 33.2 H (21.0-32.0) mmol/L Anion Gap 8.0 (5.0-15.0) mmol/L BUN 15 D (8-26) mg/dL Creatinine 1.28 (0.70-1.30) mg/dL Est Cr Clr Drug Dosing 57.15 mL/min Estimated GFR (MDRD) 57 L (>60) MLS/MIN BUN/Creatinine Ratio 11.7 (6-25) Glucose 94 D (74-100) mg/dL Calcium 8.2 L (8.5-10.1) mg/dL VERITO Results - Last 24 hrs: Microbiology 03/14/17 10:00 Aerobic Blood Culture - Preliminary Blood NO GROWTH AFTER 2 DAYS Anaerobic Blood Culture - Preliminary NO GROWTH AFTER 2 DAYS 03/14/17 10:30 MRSA Surveillance Culture - Final Nares, Left NO MRSA ISOLATED Med Orders - Current: Current Medications Albuterol/Ipratropium (Duoneb 3.0-0.5 Mg/3 Ml) 3 ml NEB Q6H [facility] Last Admin: 03/16/17 07:47 Dose: 3 ml Allopurinol (Zyloprim) 300 mg PO DAILY [facility] Last Admin: 03/16/17 07:42 Dose: 300 mg Amiodarone HCl (Cordarone) 200 mg PO DAILY [facility] Last Admin: 03/16/17 07:44 Dose: 200 mg Atorvastatin Calcium (Lipitor) 10 mg PO DAILY [facility] Last Admin: 03/16/17 07:43 Dose: 10 mg Bumetanide (Bumex) 1 mg PO DAILY [facility] Last Admin: 03/16/17 07:45 Dose: 1 mg Carvedilol (Coreg) 6.25 mg PO BIDMEALS [facility] Last Admin: 03/16/17 07:43 Dose: 6.25 mg Docusate Sodium (Colace) 200 mg PO BID [facility] Last Admin: 03/16/17 07:42 Dose: 200 mg Escitalopram Oxalate (Lexapro) 10 mg PO DAILY [facility] Last Admin: 03/16/17 07:44 Dose: 10 mg Fluticasone Propionate (Flovent Hfa 220 Mcg) 0 gm INH BID [facility] Last Admin: 03/16/17 07:46 Dose: 1 puff Azithromycin 500 mg/ Sodium (Chloride) 250 mls @ 250 mls/hr IV Q24H [facility] Last Admin: 03/16/17 09:28 Dose: 250 mls/hr Ceftriaxone Sodium 1 gm/ (Sodium Chloride) 50 mls @ 100 mls/hr IV Q12H [facility] Last Admin: 03/15/17 23:45 Dose: 100 mls/hr Lisinopril (Prinivil) 2.5 mg PO DAILY [facility] Last Admin: 03/16/17 07:42 Dose: 2.5 mg Lorazepam (Ativan) 0.5 mg PO DAILY [facility] Last Admin: 03/16/17 07:43 Dose: 0.5 mg Nitroglycerin (Nitrostat) 0.4 mg SL ASDIRECTED PRN PRN Reason: Chest Pain Omeprazole (Omeprazole) 20 mg PO BID@0700,1600 [facility] Last Admin: 03/16/17 07:41 Dose: 20 mg Potassium Chloride (Klor-Con M20) 20 meq PO BIDMEALS [facility] Last Admin: 03/16/17 07:45 Dose: 20 meq Quetiapine Fumarate (Seroquel) 200 mg PO QAM [facility] Last Admin: 03/16/17 09:28 Dose: 200 mg Quetiapine Fumarate (Seroquel) 400 mg PO QPM [facility] Last Admin: 03/15/17 19:56 Dose: 400 mg Sodium Chloride (Saline Flush) 10 ml FLUSH ASDIRECTED PRN PRN Reason: Keep Vein Open Last Admin: 03/14/17 23:34 Dose: 10 ml Tramadol HCl (Ultram) 50 mg PO TID [facility] Last Admin: 03/16/17 07:45 Dose: 50 mg Discontinued Medications Albuterol/Ipratropium (Duoneb 3.0-0.5 Mg/3 Ml) 3 ml NEB ONETIME STA Stop: 03/14/17 08:40 Last Admin: 03/14/17 08:34 Dose: 3 ml Albuterol/Ipratropium (Duoneb 3.0-0.5 Mg/3 Ml) 3 ml NEB Q6H [facility] Last Admin: 03/14/17 12:21 Dose: Not Given Albuterol/Ipratropium (Duoneb 3.0-0.5 Mg/3 Ml) 3 ml NEB Q6H [facility] Last Admin: 03/14/17 10:41 Dose: Not Given Fluticasone Propionate (Flovent Hfa 110 Mcg) 0 gm INH BID [facility] Last Admin: 03/14/17 14:26 Dose: 2 inhalation Lorazepam (Ativan) 1 mg IM ONETIME ONE Stop: 03/14/17 08:39 Last Admin: 03/14/17 08:36 Dose: 1 mg Non-Formulary Medication (Potassium Chloride [Potassium Chloride]) 20 tab PO BIDMEALS [facility] Omeprazole (Omeprazole) 20 mg PO BIDMEALS [facility] Quetiapine Fumarate (Seroquel) 200 mg PO QPM [facility] Tramadol HCl (Ultram) 50 mg PO TID PRN PRN Reason: Pain Last Admin: 03/14/17 09:45 Dose: 50 mg *Q Meaningful Use (DIS) - VTE *Q VTE Criteria *Q: - Stroke *Q Stroke Criteria *Q: - AMI *Q AMI Criteria *Q:
[2017-03-16 10:26] VITALS: BP 175/68
[2017-03-16] MEDS: cefTRIAXone 1 GM in Sodium Chloride 0.9% 50 ML IV SCH (10:33)
== END 2017-03-16 12:55 | disposition home or self-care (01) | DRG 194 ==
LOC: LB.ED 08:00 → LB.MS 09:58 → UNDOADMIN 10:06
PROVIDERS: ADMIT Family Medicine; ATTEND Family Medicine
DX: J18.1 Lobar pneumonia, unspecified organism (principal); I13.0 Hypertensive heart and chronic kidney disease with heart failure and stage 1 through stage 4 chronic kidney disease, or unspecified chronic kidney disease; I50.22 Chronic systolic (congestive) heart failure; F17.210 Nicotine dependence, cigarettes, uncomplicated; F41.8 Other specified anxiety disorders; J44.9 Chronic obstructive pulmonary disease, unspecified; E11.22 Type 2 diabetes mellitus with diabetic chronic kidney disease; R09.02 Hypoxemia; R06.02 Shortness of breath; R06.4 Hyperventilation; N18.3 Chronic kidney disease, stage 3 (moderate); M10.9 Gout, unspecified; Z86.19 Personal history of other infectious and parasitic diseases; Z87.11 Personal history of peptic ulcer disease; Z86.73 Personal history of transient ischemic attack (TIA), and cerebral infarction without residual deficits; M19.90 Unspecified osteoarthritis, unspecified site; M54.9 Dorsalgia, unspecified; G89.29 Other chronic pain; Z95.0 Presence of cardiac pacemaker; Z95.5 Presence of coronary angioplasty implant and graft; H54.7 Unspecified visual loss; Z88.8 Allergy status to other drugs, medicaments and biological substances; Z23 Encounter for immunization
CPT/HCPCS: 36415; 71010; 80053; 84484; 85025; 93005; 99285; A0425; A0429; A9270 ×2; J2060; J7620; 80048; 87040; 90686; G0008; J0456; J0696; J7050

== ENCOUNTER 2018-11-15 16:36 | Emergency (ER) | payer MEDICARE ==
[2018-11-15 19:08] VITALS: BP 138/78
--- NOTE | 2018-11-16 11:34 | CR ---
Date of Service: 11/15/18 Clinical Data: shortness of breath AP CHEST: Comparison is made to a prior exam dated 03/14/17. The cardiac pacer and pacer wire remain unchanged in position. The heart size is within normal limits. The proximal pulmonary arteries do appear prominent suggesting the possibility of pulmonary hypertension. The pulmonary vascular congestion on the prior exam has improved. The lungs are clear. No pneumothorax. No pleural effusions. [id number] MTDD
--- NOTE | 2018-11-19 12:58 | EDM.PDOC ---
ED HPI GENERAL MEDICAL PROBLEM - General Chief Complaint: Respiratory Problem Stated Complaint: can't breath and sweating Time Seen by Provider: 11/15/18 16:45 Source of Information: Reports: Patient History Limitations: Reports: No Limitations - History of Present Illness INITIAL COMMENTS - FREE TEXT/NARRATIVE: This is a 63yo M here for increasing concerns of shortness of breath. Patient states he feels short of breath all the time and feels that it may be worse. Patient denies any fever or chills but does have an occasional cough that is non -productive. No other health concerns noted today. Onset: Gradual Duration: Week(s):, Chronic, Getting Worse Location: Reports: Generalized Severity: Mild Improves with: Reports: None Worsens with: Reports: Movement Associated Symptoms: Reports: Shortness of Breath - Related Data Allergies Allergy/AdvReac Type Severity Reaction Status Date / Time alprazolam [From Xanax] Allergy Intermediate Delusions Verified 05/07/18 17:24 Home Meds: Home Meds Carvedilol 1 tab PO BIDMEALS 06/17/14 [History] Nitroglycerin [Nitrostat] 1 tab SL ASDIRECTED PRN 06/17/14 [History] Omeprazole 40 mg PO BIDMEALS 06/17/14 [History] Potassium Chloride 20 meq PO BIDMEALS 06/17/14 [History] QUEtiapine Fumarate [Quetiapine Fumarate] 400 mg PO QPM 06/17/14 [History] traMADol HCl [Tramadol HCl] 50 mg PO TID 06/17/14 [History] Bumetanide [Bumex] 1 mg PO BID 08/07/16 [History] LORazepam 0.5 mg PO TID PRN 08/07/16 [History] Lisinopril 2.5 mg PO DAILY 12/29/16 [History] atorvaSTATin [Lipitor] 10 mg PO DAILY 12/29/16 [History] QUEtiapine Fumarate [Quetiapine Fumarate] 200 mg PO QAM 03/14/17 [History] Melatonin 15 mg PO BEDTIME 05/07/18 [History] Past Medical History HEENT History: Reports: Impaired Vision, Other (See Below) Other HEENT History: nearsighted and farsighted Cardiovascular History: Reports: CAD, Heart Failure, Hypertension, Pacemaker, Stents Respiratory History: Reports: COPD, Other (See Below) Other Respiratory History: Emphysema Gastrointestinal History: Reports: GI Bleed, PUD Genitourinary History: Reports: Renal Disease Musculoskeletal History: Reports: Arthritis, Back Pain, Chronic, Fracture, Neck Pain, Chronic Neurological History: Reports: TIA, Other (See Below) Other Neuro History: nerve damage because of the accident Psychiatric History: Reports: Anxiety Endocrine/Metabolic History: Reports: Diabetes, Type II Hematologic History: Reports: Transfusion Reaction, Other (See Below) Other Hematologic History: Antibody issues - See Scan doc. - Infectious Disease History Infectious Disease History: Reports: Hepatitis C, Mumps - Past Surgical History Cardiovascular Surgical History: Reports: Carotid Stents, Pacer GI Surgical History: Reports: Other (See Below) Other GI Surgeries/Procedures: splenectomy Social & Family History - Family History Family Medical History: Noncontributory - Tobacco Use Smoking Status *Q: Current Every Day Smoker Years of Tobacco use: 50 Packs/Tins Daily: 1 - Caffeine Use Caffeine Use: Reports: Coffee - Recreational Drug Use Recreational Drug Use: No - Living Situation & Occupation Living situation: Reports: , Other Occupation: Disabled ED ROS GENERAL - Review of Systems Review Of Systems: ROS reveals no pertinent complaints other than HPI. ED EXAM, GENERAL - Physical Exam Exam: See Below Exam Limited By: No Limitations General Appearance: Alert, WD/WN, Mild Distress Eye Exam: Bilateral Eye: EOMI, PERRL Ears: Normal External Exam Nose: Normal Inspection Throat/Mouth: Normal Inspection Head: Atraumatic, Normocephalic Neck: Normal Inspection Respiratory/Chest: No Respiratory Distress, Normal Breath Sounds, Wheezing Cardiovascular: Normal Peripheral Pulses, Regular Rate, Rhythm Peripheral Pulses: 2+: Dorsalis Pedis (L), Dorsalis Pedis (R) GI/Abdominal: Normal Bowel Sounds Extremities: Normal Inspection Neurological: Alert, Oriented, CN II-XII Intact Psychiatric: Anxious Course - Vital Signs Last Recorded V/S: Last Vital Signs Temp 36.2 C 11/15/18 18:21 Pulse 81 11/15/18 19:07 Resp 24 H 11/15/18 19:07 BP 138/78 11/15/18 19:07 Pulse Ox 95 11/15/18 19:07 - Orders/Labs/Meds Labs: Laboratory Tests 11/15/18 11/15/18 11/15/18 Range/Units 17:20 17:20 17:20 WBC 16.2 H D (4.0-11.0) K/uL RBC 4.36 L (4.50-6.50) M/uL Hgb 14.0 (13.0-18.0) g/dL Hct 43.2 (40.0-54.0) % MCV 99 H (76-96) fL MCH 32.1 H (27.0-32.0) pg MCHC 32.4 (31.0-35.0) g/dL RDW 16.6 H (11.0-16.0) % Plt Count 291 (150-400) K/uL MPV 10.0 (6.0-10.0) fL Neut % (Auto) 75.8 H (45.0-70.0) % Lymph % (Auto) 14.4 L (20.0-40.0) % [place] % (Auto) 9.4 (3.0-10.0) % Eos % (Auto) 0.2 L (1.0-5.0) % Baso % (Auto) 0.2 (0.0-0.5) % Neut # (Auto) 12.31 H (2.00-7.50) K/uL Lymph # (Auto) 2.34 (1.50-4.00) K/uL [place] # (Auto) 1.53 H (0.20-0.80) K/uL Eos # (Auto) 0.03 L (0.04-0.40) K/uL Baso # (Auto) 0.03 (0.02-0.10) K/uL VBG pH 7.45 H (7.31-7.41) Sodium 141 (136-145) mmol/L Potassium 4.8 (3.5-5.1) mmol/L Chloride 99 (98-107) mmol/L Carbon Dioxide 33.5 H (21.0-32.0) mmol/L Anion Gap 13.3 (5.0-15.0) mmol/L BUN 16 (8-26) mg/dL Creatinine 1.57 H D (0.70-1.30) mg/dL Est Cr Clr Drug Dosing TNP Estimated GFR (MDRD) 45 L (>60) MLS/MIN BUN/Creatinine Ratio 10.2 (6-25) Glucose 94 (74-100) mg/dL Calcium 8.9 (8.5-10.1) mg/dL Troponin I < 0.017 D (0.000-0.060) ng/mL B-Natriuretic Peptide 70969 H D (0-125) pg/mL Urine Color Urine Appearance (CLEAR) Urine pH (5.0-8.0) Ur Specific [place] (1.003-1.030) Urine Protein (NEGATIVE) mg/dL Urine Glucose (UA) (NEGATIVE) mg/dL Urine Ketones (NEGATIVE) mg/dL Urine Occult Blood (NEGATIVE) Urine Nitrite (NEGATIVE) Urine Bilirubin (NEGATIVE) Urine Urobilinogen (0.2-1.0) E.U./dL Ur Leukocyte Esterase (NEGATIVE) Urine Opiates Screen (NEGATIVE) Ur Oxycodone Screen (NEGATIVE) Urine Methadone Screen (NEGATIVE) Ur Barbiturates Screen (NEGATIVE) Ur Tricyclics Screen (NEGATIVE) Ur Phencyclidine Scrn (NEGATIVE) Ur Amphetamine Screen (NEGATIVE) U Methamphetamines Scrn (NEGATIVE) Urine MDMA Screen (NEGATIVE) U Benzodiazepines Scrn (NEGATIVE) U Cocaine Metab Screen (NEGATIVE) U Marijuana (THC) Screen (NEGATIVE) 11/15/18 11/15/18 Range/Units 17:20 17:20 WBC (4.0-11.0) K/uL RBC (4.50-6.50) M/uL Hgb (13.0-18.0) g/dL Hct (40.0-54.0) % MCV (76-96) fL MCH (27.0-32.0) pg MCHC (31.0-35.0) g/dL RDW (11.0-16.0) % Plt Count (150-400) K/uL MPV (6.0-10.0) fL Neut % (Auto) (45.0-70.0) % Lymph % (Auto) (20.0-40.0) % [place] % (Auto) (3.0-10.0) % Eos % (Auto) (1.0-5.0) % Baso % (Auto) (0.0-0.5) % Neut # (Auto) (2.00-7.50) K/uL Lymph # (Auto) (1.50-4.00) K/uL [place] # (Auto) (0.20-0.80) K/uL Eos # (Auto) (0.04-0.40) K/uL Baso # (Auto) (0.02-0.10) K/uL VBG pH (7.31-7.41) Sodium (136-145) mmol/L Potassium (3.5-5.1) mmol/L Chloride (98-107) mmol/L Carbon Dioxide (21.0-32.0) mmol/L Anion Gap (5.0-15.0) mmol/L BUN (8-26) mg/dL Creatinine (0.70-1.30) mg/dL Est Cr Clr Drug Dosing Estimated GFR (MDRD) (>60) MLS/MIN BUN/Creatinine Ratio (6-25) Glucose (74-100) mg/dL Calcium (8.5-10.1) mg/dL Troponin I (0.000-0.060) ng/mL B-Natriuretic Peptide (0-125) pg/mL Urine Color Yellow Urine Appearance Clear (CLEAR) Urine pH 8.5 H (5.0-8.0) Ur Specific [place] 1.015 (1.003-1.030) Urine Protein Negative (NEGATIVE) mg/dL Urine Glucose (UA) Negative (NEGATIVE) mg/dL Urine Ketones Negative (NEGATIVE) mg/dL Urine Occult Blood Negative (NEGATIVE) Urine Nitrite Negative (NEGATIVE) Urine Bilirubin Negative (NEGATIVE) Urine Urobilinogen 0.2 (0.2-1.0) E.U./dL Ur Leukocyte Esterase Negative (NEGATIVE) Urine Opiates Screen Negative (NEGATIVE) Ur Oxycodone Screen Negative (NEGATIVE) Urine Methadone Screen Negative (NEGATIVE) Ur Barbiturates Screen Negative (NEGATIVE) Ur Tricyclics Screen Negative (NEGATIVE) Ur Phencyclidine Scrn Negative (NEGATIVE) Ur Amphetamine Screen Negative (NEGATIVE) U Methamphetamines Scrn Negative (NEGATIVE) Urine MDMA Screen Negative (NEGATIVE) U Benzodiazepines Scrn Negative (NEGATIVE) U Cocaine Metab Screen Negative (NEGATIVE) U Marijuana (THC) Screen Positive H (NEGATIVE) Departure - Departure Time of Disposition: 18:00 Disposition: Home, Self-Care 01 Condition: Fair Clinical Impression: COPD (chronic obstructive pulmonary disease) Qualifiers: COPD type: unspecified COPD Qualified Code(s): J44.9 - Chronic obstructive pulmonary disease, unspecified - Discharge Information Instructions: Heart Failure, [id number] Referrals: PCP,None [Primary Care Provider] - Forms: ED Department Discharge Additional Instructions: Increase Bumex to 1.5mg twice a day. Follow up with Dr Pollack next week. Follow up with [facility] [employer] [facility] [facility] in [place]. Continue to hold Fentanyl patch until you follow up with Dr Pollack. Call clinic tomorrow to schedule Echocardiogram. - Problem List & Annotations (1) Leucocytosis SNOMED Code(s): 259818009, 442910758 Code(s): D72.829 - ELEVATED WHITE BLOOD CELL COUNT, UNSPECIFIED Status: Acute Priority: High (2) Congestive heart failure SNOMED Code(s): 81054258 Code(s): I50.9 - HEART FAILURE, UNSPECIFIED Status: Chronic Priority: High Annotation/Comment:: 08/07/16 - 1. Congestive heart failure, 2. Chronic obstructive pulonary disease, 3. Possible early stage sepsis Qualifiers: Qualified Code(s): I50.9 - Heart failure, unspecified (3) COPD (chronic obstructive pulmonary disease) SNOMED Code(s): 72999525 Code(s): J44.9 - CHRONIC OBSTRUCTIVE PULMONARY DISEASE, UNSPECIFIED Status : Chronic Priority: High Annotation/Comment:: 08/07/16 - 1. Congestive heart failure, 2. Chronic obstructive pulonary disease, 3. Possible early stage sepsis Qualifiers: COPD type: unspecified COPD Qualified Code(s): J44.9 - Chronic obstructive pulmonary disease, unspecified (4) Anxiety SNOMED Code(s): 73817233 Code(s): F41.9 - ANXIETY DISORDER, UNSPECIFIED Status: Chronic (5) Chronic renal disease SNOMED Code(s): 314359828 Code(s): N18.9 - CHRONIC KIDNEY DISEASE, UNSPECIFIED Status: Acute Qualifiers: Chronic kidney disease stage: stage 3 (moderate) Qualified Code(s): N18.3 - Chronic kidney disease, stage 3 (moderate) - Problem List Review Problem List Initiated/Reviewed/Updated: Yes - Assessment/Plan Plan: Counseled on use of bumex and management of CHF. Discussed close monitoring of symptoms and close f/u. Reassured patient due to anxiety. Counseled on patients breathing and shortness of breath with excellent oxygen saturation. Discussed chronic COPD and possible worsening CHF. Discussed f/u Cardiology and ECHO. Patient to increase Bumex as directed and hold Fentanyl.
== END 2018-11-15 19:04 | disposition home or self-care (01) ==
LOC: LB.ED 16:36
DX: J44.9 Chronic obstructive pulmonary disease, unspecified (principal); I11.0 Hypertensive heart disease with heart failure; I50.9 Heart failure, unspecified; E11.9 Type 2 diabetes mellitus without complications; F41.9 Anxiety disorder, unspecified; I25.10 Atherosclerotic heart disease of native coronary artery without angina pectoris; F17.210 Nicotine dependence, cigarettes, uncomplicated; Z86.73 Personal history of transient ischemic attack (TIA), and cerebral infarction without residual deficits; Z79.899 Other long term (current) drug therapy; Z88.8 Allergy status to other drugs, medicaments and biological substances
CPT/HCPCS: 36415; 71045; 80048; 80307; 81003; 82800; 83880; 84484; 85025; 93005; 99285-25

== ENCOUNTER 2018-11-18 15:11 | Emergency (ER) | payer MEDICARE ==
[2018-11-18 15:18] VITALS: BP 127/75
[2018-11-18] MEDS ORDERED: Penicillin V Potassium 250 MG Tab ONE (15:20)
--- NOTE | 2018-11-18 16:15 | EDM.PDOC ---
ED HPI GENERAL MEDICAL PROBLEM - General Chief Complaint: Upper Extremity Injury/Pain Stated Complaint: toothache Time Seen by Provider: 11/18/18 15:30 Source of Information: Reports: Patient History Limitations: Reports: No Limitations - History of Present Illness INITIAL COMMENTS - FREE TEXT/NARRATIVE: According to patient he claims he has had a infected tooth in the mouth for along time now. Apparently 2 days ago he started to develop pain in the left upper Jaw and also developed swelling of the left cheek. The pain has slightly improved but the swelling has increased today. No fever or chills. No lethargy or malaise. Pt has diabetes and severe COPD, hence got concerned and here in the emergency room. Onset Date: 11/15/18 Location: Reports: Other (tooth) Quality: Reports: Ache Severity: Mild Associated Symptoms: Denies: Confusion, Chest Pain, Cough, Diaphoresis, Fever/ Chills, Headaches, Malaise, Nausea/Vomiting, Rash Treatments [employer]: Reports: Other (see below) Other Treatments [employer]: clove, tramadol Right Face/Facial Pain Score (Numeric/FACES): 7 - Related Data Allergies Allergy/AdvReac Type Severity Reaction Status Date / Time alprazolam [From Xanax] Allergy Intermediate Delusions Verified 05/07/18 17:24 Home Meds: Home Meds Carvedilol 1 tab PO BIDMEALS 06/17/14 [History] Nitroglycerin [Nitrostat] 1 tab SL ASDIRECTED PRN 06/17/14 [History] Omeprazole 40 mg PO BIDMEALS 06/17/14 [History] Potassium Chloride 20 meq PO BIDMEALS 06/17/14 [History] QUEtiapine Fumarate [Quetiapine Fumarate] 400 mg PO QPM 06/17/14 [History] traMADol HCl [Tramadol HCl] 50 mg PO TID 06/17/14 [History] Bumetanide [Bumex] 1 mg PO BID 08/07/16 [History] LORazepam 0.5 mg PO TID PRN 08/07/16 [History] Lisinopril 2.5 mg PO DAILY 12/29/16 [History] atorvaSTATin [Lipitor] 10 mg PO DAILY 12/29/16 [History] QUEtiapine Fumarate [Quetiapine Fumarate] 200 mg PO QAM 03/14/17 [History] Melatonin 15 mg PO BEDTIME 05/07/18 [History] Past Medical History HEENT History: Reports: Impaired Vision, Other (See Below) Other HEENT History: nearsighted and farsighted Cardiovascular History: Reports: CAD, Heart Failure, Hypertension, Pacemaker, Stents Respiratory History: Reports: COPD, Other (See Below) Other Respiratory History: Emphysema Gastrointestinal History: Reports: GI Bleed, PUD Genitourinary History: Reports: Renal Disease Musculoskeletal History: Reports: Arthritis, Back Pain, Chronic, Fracture, Neck Pain, Chronic Neurological History: Reports: TIA, Other (See Below) Other Neuro History: nerve damage because of the accident Psychiatric History: Reports: Anxiety Endocrine/Metabolic History: Reports: Diabetes, Type II Hematologic History: Reports: Transfusion Reaction, Other (See Below) Other Hematologic History: Antibody issues - See Scan doc. - Infectious Disease History Infectious Disease History: Reports: Hepatitis C, Mumps - Past Surgical History Cardiovascular Surgical History: Reports: Carotid Stents, Pacer GI Surgical History: Reports: Other (See Below) Other GI Surgeries/Procedures: splenectomy Social & Family History - Family History Family Medical History: Noncontributory - Tobacco Use Smoking Status *Q: Current Every Day Smoker Years of Tobacco use: 50 Packs/Tins Daily: 0.7 Second Hand Smoke Exposure: No - Caffeine Use Caffeine Use: Reports: Coffee - Recreational Drug Use Recreational Drug Use: No - Living Situation & Occupation Living situation: Reports: , Other Occupation: Disabled Review of Systems - Review of Systems Review Of Systems: See Below Constitutional: Denies: Chills, Fever Eyes: Denies: Vision Change Ears: Denies: Dizziness Nose: Denies: Congestion Mouth/Throat: Denies: Lip Swelling, Throat Swelling, Painful Swallowing, Other ( tooth ache with left facial swelling) Respiratory: Denies: Cough, Sputum Cardiovascular: Denies: Chest Pain, Syncope ED EXAM, GENERAL - Physical Exam Exam: See Below Exam Limited By: No Limitations General Appearance: Alert, WD/WN, No Apparent Distress Eye Exam: Bilateral Eye: EOMI, PERRL Ears: Normal External Exam, Normal Canal, Hearing Grossly Normal, Normal TMs Ear Exam: Bilateral Ear: Auricle Normal, Canal Normal, TM normal Nose: Normal Inspection, Normal Mucosa, No Blood Throat/Mouth: Other (very poor oral hygiene with severe partial destroyed teeth. The left cannine is destroyed all the way to the kimberly. There is gingival swelling and erythema. No bleeding from the gingiva noted.) Head: Facial Swelling (left cheek), Facial Tenderness (tender over the left maxillary area over the upper jaw line) Course - Vital Signs Text/Narrative:: Poor oral hygiene with chronic gingivitis with infected caries left upper canine. Pt has been started on PenVK 500mg 3 times daily for 1 wk. Advised Listerine mouth wash 2-3 times daily. Followup with dentist next week for possible tooth extraction. Last Recorded V/S: Last Vital Signs Temp 97.6 F 11/18/18 15:15 Pulse 73 11/18/18 15:15 Resp 16 11/18/18 15:15 BP 127/75 11/18/18 15:15 Pulse Ox 2 L 11/18/18 15:15 Departure - Departure Time of Disposition: 16:00 Disposition: Home, Self-Care 01 Condition: Fair Clinical Impression: Infected tooth, Gingivitis - Discharge Information *PRESCRIPTION DRUG MONITORING PROGRAM REVIEWED*: Not Applicable *COPY OF PRESCRIPTION DRUG MONITORING REPORT IN PATIENT ESTRELLITA: Not Applicable Instructions: Gingivitis, [id number], Penicillin V tablets Referrals: PCP,None [Primary Care Provider] - Forms: ED Department Discharge Care Plan Goals: Pen V K 2 tablets 3 x day for 7 days. Rinse with mouth wash 2 to 3 x day. Follow up with dentist as soon as possible before out of antibiotic. - Problem List & Annotations (1) Gingivitis SNOMED Code(s): 12915998 Code(s): K05.10 - CHRONIC GINGIVITIS, PLAQUE INDUCED Status: Acute Current Visit: Yes (2) Infected tooth SNOMED Code(s): 718541559 Code(s): K04.7 - PERIAPICAL ABSCESS WITHOUT SINUS Status: Acute Current Visit: Yes - Problem List Review Problem List Initiated/Reviewed/Updated: Yes - Assessment/Plan Assessment:: infected left upper canine with chronic gingivitis Plan: Poor oral hygiene with chronic gingivitis with infected caries left upper canine. Pt has been started on PenVK 500mg 3 times daily for 1 wk. Advised Listerine mouth wash 2-3 times daily. Followup with dentist next week for possible tooth extraction.
== END 2018-11-18 15:45 | disposition home or self-care (01) ==
LOC: LB.ED 15:11
DX: K04.7 Periapical abscess without sinus (principal); K05.10 Chronic gingivitis, plaque induced; F17.210 Nicotine dependence, cigarettes, uncomplicated; I11.0 Hypertensive heart disease with heart failure; I50.9 Heart failure, unspecified; E11.9 Type 2 diabetes mellitus without complications; Z86.73 Personal history of transient ischemic attack (TIA), and cerebral infarction without residual deficits; I25.10 Atherosclerotic heart disease of native coronary artery without angina pectoris; M19.90 Unspecified osteoarthritis, unspecified site; Z95.0 Presence of cardiac pacemaker; Z79.899 Other long term (current) drug therapy; Z95.5 Presence of coronary angioplasty implant and graft; Z88.8 Allergy status to other drugs, medicaments and biological substances
CPT/HCPCS: 99282; 99283; A9270-GY

== ENCOUNTER 2018-12-20 13:45 | Emergency (ER) | payer MEDICARE, MEDICAID ==
--- NOTE | 2018-12-20 16:00 | EDM.PDOC ---
ED HPI GENERAL MEDICAL PROBLEM - General Stated Complaint: SWALLOWED SOMETHING Time Seen by Provider: 12/20/18 13:50 Source of Information: Reports: Patient History Limitations: Reports: No Limitations - History of Present Illness INITIAL COMMENTS - FREE TEXT/NARRATIVE: According to patient he was at [place] today. He swallowed a piece of plastic drinking straw accidentally. The piece was less then 1 cm long.He is her to be checked. No choking. No breathing difficulty or abdominal pain. Pt was diagnosed with gastric ulcer and hence wants to be checked. No pain symptoms. He is not in any discomfort and distress. Onset: Today Onset Date: 12/20/18 Onset Time: 13:00 Improves with: Reports: None Worsens with: Reports: None Associated Symptoms: Denies: Confusion, Chest Pain, Cough, Diaphoresis, Fever/ Chills, Headaches, Nausea/Vomiting, Rash, Seizure, Shortness of Breath, Syncope , Weakness - Related Data Allergies Allergy/AdvReac Type Severity Reaction Status Date / Time alprazolam [From Xanax] Allergy Intermediate Delusions Verified 05/07/18 17:24 Home Meds: Home Meds Carvedilol 1 tab PO BIDMEALS 06/17/14 [History] Nitroglycerin [Nitrostat] 1 tab SL ASDIRECTED PRN 06/17/14 [History] Omeprazole 40 mg PO BIDMEALS 06/17/14 [History] Potassium Chloride 20 meq PO BIDMEALS 06/17/14 [History] QUEtiapine Fumarate [Quetiapine Fumarate] 400 mg PO QPM 06/17/14 [History] traMADol HCl [Tramadol HCl] 50 mg PO TID 06/17/14 [History] Bumetanide [Bumex] 1 mg PO BID 08/07/16 [History] LORazepam 0.5 mg PO TID PRN 08/07/16 [History] Lisinopril 2.5 mg PO DAILY 12/29/16 [History] atorvaSTATin [Lipitor] 10 mg PO DAILY 12/29/16 [History] QUEtiapine Fumarate [Quetiapine Fumarate] 200 mg PO QAM 03/14/17 [History] Melatonin 15 mg PO BEDTIME 05/07/18 [History] Past Medical History HEENT History: Reports: Impaired Vision, Other (See Below) Other HEENT History: nearsighted and farsighted Cardiovascular History: Reports: CAD, Heart Failure, Hypertension, Pacemaker, Stents Respiratory History: Reports: COPD, Other (See Below) Other Respiratory History: Emphysema Gastrointestinal History: Reports: GI Bleed, PUD Genitourinary History: Reports: Renal Disease Musculoskeletal History: Reports: Arthritis, Back Pain, Chronic, Fracture, Neck Pain, Chronic Neurological History: Reports: TIA, Other (See Below) Other Neuro History: nerve damage because of the accident Psychiatric History: Reports: Anxiety Endocrine/Metabolic History: Reports: Diabetes, Type II Hematologic History: Reports: Transfusion Reaction, Other (See Below) Other Hematologic History: Antibody issues - See Scan doc. - Infectious Disease History Infectious Disease History: Reports: Hepatitis C, Mumps - Past Surgical History Cardiovascular Surgical History: Reports: Carotid Stents, Pacer GI Surgical History: Reports: Other (See Below) Other GI Surgeries/Procedures: splenectomy Social & Family History - Family History Family Medical History: Noncontributory - Caffeine Use Caffeine Use: Reports: Coffee - Living Situation & Occupation Living situation: Reports: , Other Occupation: Disabled ED ROS GENERAL - Review of Systems Review Of Systems: See Below Constitutional: Denies: Fever, Chills HEENT: Denies: Ear Pain, Rhinitis, Throat Pain Respiratory: Denies: Shortness of Breath, Pleuritic Chest Pain, Cough, Sputum Cardiovascular: Denies: Chest Pain, Lightheadedness GI/Abdominal: Reports: Flatus. Denies: Abdominal Pain, Constipation, Diarrhea, Nausea, Vomiting : Denies: Dysuria, Frequency, Hematuria Musculoskeletal: Denies: Joint Pain, Joint Swelling Skin: Denies: Bruising, Pruritis, Rash ED EXAM, GENERAL - Physical Exam Exam: See Below Exam Limited By: No Limitations General Appearance: Alert, WD/WN, No Apparent Distress Eye Exam: Bilateral Eye: EOMI, PERRL Ears: Normal External Exam, Normal Canal, Hearing Grossly Normal, Normal TMs Ear Exam: Bilateral Ear: Auricle Normal, Canal Normal, TM normal Nose: Normal Inspection, Normal Mucosa, No Blood Throat/Mouth: Normal Inspection, Normal Lips, Normal Teeth, Normal Gums, Normal Oropharynx, Normal Voice, No Airway Compromise Head: Atraumatic, Normocephalic Neck: Normal Inspection, Supple, Non-Tender, Full Range of Motion Respiratory/Chest: No Respiratory Distress, Lungs Clear, Normal Breath Sounds, No Accessory Muscle Use, Chest Non-Tender Cardiovascular: Normal Peripheral Pulses, Regular Rate, Rhythm, No Edema, No Gallop, No JVD, No Murmur, No Rub GI/Abdominal: Normal Bowel Sounds, Soft, Non-Tender, No Organomegaly, No Distention, No Abnormal Bruit, No Mass Neurological: Alert, Oriented, CN II-XII Intact Course - Vital Signs Text/Narrative:: Pt's clinical exam is normal. He does not have any pain or discomfort. I did try to reassured that the small piece of straw should be easily passed int he stool in the next few days. Pt is very concerned. I doubt if the plastic straw would be seen on Xray, but to reassure patient, I did get abdominal X-ray upright. X-ray shows lot of stool int he colon. Pt reassured that he is constipated. Advised to take stool softener, which should help with constipation and the plastic straw should be passed without any complications. - Orders/Labs/Meds Orders: Active Orders 24 hr Category Date Time Status Abdomen 1V Upright [CR] Stat Exams 12/20/18 13:55 Taken Departure - Departure Time of Disposition: 14:30 Disposition: Home, Self-Care 01 Condition: Fair Clinical Impression: Swallowed foreign body - Discharge Information *PRESCRIPTION DRUG MONITORING PROGRAM REVIEWED*: Not Applicable *COPY OF PRESCRIPTION DRUG MONITORING REPORT IN PATIENT ESTRELLITA: Not Applicable Referrals: PCP,None [Primary Care Provider] - - Problem List & Annotations (1) Swallowed foreign body SNOMED Code(s): 92606849 Code(s): T18.9XXA - FOREIGN BODY OF ALIMENTARY TRACT, PART UNSP, INIT ENCNTR Status: Acute Current Visit: Yes - Problem List Review Problem List Initiated/Reviewed/Updated: Yes - My Orders Last 24 Hours: My Active Orders 12/20/18 13:55 Abdomen 1V Upright [CR] Stat - Assessment/Plan Last 24 Hours: My Active Orders 12/20/18 13:55 Abdomen 1V Upright [CR] Stat Assessment:: Swallowed a small piece of plastic straw Plan: Pt's clinical exam is normal. He does not have any pain or discomfort. I did try to reassured that the small piece of straw should be easily passed int he stool in the next few days. Pt is very concerned. I doubt if the plastic straw would be seen on Xray, but to reassure patient, I did get abdominal X-ray upright. X-ray shows lot of stool int he colon. Pt reassured that he is constipated. Advised to take stool softener, which should help with constipation and the plastic straw should be passed without any complications.
[2018-12-20 18:34] VITALS: BP 142/74
--- NOTE | 2018-12-21 08:04 | CR ---
Date of Service: 01/19/19 Clinical Data: swallowed object. UPRIGHT ABDOMEN: No evidence of obstruction or ileus. No free air. There is a moderate amount of stool present throughout the colon. The patient is status post internal fixation of L5 and the sacrum. No radiodense foreign bodies. [id number] MTDD
== END 2018-12-20 14:36 | disposition home or self-care (01) ==
LOC: LB.ED 13:45
DX: T18.9XXA Foreign body of alimentary tract, part unspecified, initial encounter (principal); I25.10 Atherosclerotic heart disease of native coronary artery without angina pectoris; I50.9 Heart failure, unspecified; I11.0 Hypertensive heart disease with heart failure; J44.9 Chronic obstructive pulmonary disease, unspecified; F41.9 Anxiety disorder, unspecified; E11.9 Type 2 diabetes mellitus without complications; Z95.5 Presence of coronary angioplasty implant and graft; Z79.899 Other long term (current) drug therapy
CPT/HCPCS: 74018; 99283-25

== ENCOUNTER 2019-02-01 08:33 | Emergency (ER) | payer MEDICARE, MEDICAID ==
[2019-02-01] MEDS ORDERED: LORazepam 2 MG/ML SDV ONE (09:00)
[2019-02-01] MEDS: LORazepam 2 MG/ML SDV IVPUSH ONE ×2 (09:05→09:45)
[2019-02-01] MEDS ORDERED: Albuterol/Ipratropium 3.0-0.5 MG/3 ML Neb Soln ONE (09:10)
[2019-02-01 09:20] VITALS: BP 157/98; PULSE 99
[2019-02-01] MEDS ORDERED: methylPREDNISolone Sodium Succinate 125 MG/2 ML SDV IVPUSH ONE (09:24)
[2019-02-01] MEDS ORDERED: methylPREDNISolone Sodium Succinate 125 MG/2 ML SDV ONE (09:33)
[2019-02-01] MEDS ORDERED: cefTRIAXone 1 GM Vial ONE (09:38)
[2019-02-01] MEDS ORDERED: cefTRIAXone 1 GM Vial IVPUSH SCH (10:00)
--- NOTE | 2019-02-01 10:23 | EDM.PDOC ---
ED HPI GENERAL MEDICAL PROBLEM - General Chief Complaint: Respiratory Problem Stated Complaint: shortness of breath Time Seen by Provider: 02/01/19 09:00 Source of Information: Reports: Patient History Limitations: Reports: No Limitations - History of Present Illness INITIAL COMMENTS - FREE TEXT/NARRATIVE: This is a 63yo M here for concerns of shortness of breath and anxiety. He states he started getting short of breath when he woke up today. He states he is always around 92% but denies having a pulse oximetry to check. He was noted to have oxygenation at 86% at his home and arrives in the ER at 100% with 4L oxygen and some shortness of breath. Onset: Sudden Duration: Hour(s):, Getting Worse Location: Reports: Generalized Severity: Mild Improves with: Reports: None Worsens with: Reports: Movement Associated Symptoms: Reports: Shortness of Breath, Other (anxiety) - Related Data Allergies Allergy/AdvReac Type Severity Reaction Status Date / Time alprazolam [From Xanax] Allergy Intermediate Delusions Verified 02/01/19 09:22 Home Meds: Home Meds Carvedilol 1 tab PO BIDMEALS 06/17/14 [History] Nitroglycerin [Nitrostat] 1 tab SL ASDIRECTED PRN 06/17/14 [History] Omeprazole 40 mg PO BIDMEALS 06/17/14 [History] Potassium Chloride 20 meq PO BIDMEALS 06/17/14 [History] QUEtiapine Fumarate [Quetiapine Fumarate] 400 mg PO QPM 06/17/14 [History] traMADol HCl [Tramadol HCl] 50 mg PO TID 06/17/14 [History] Bumetanide [Bumex] 1 mg PO BID 08/07/16 [History] LORazepam 0.5 mg PO TID PRN 08/07/16 [History] Lisinopril 2.5 mg PO DAILY 12/29/16 [History] atorvaSTATin [Lipitor] 10 mg PO DAILY 12/29/16 [History] QUEtiapine Fumarate [Quetiapine Fumarate] 200 mg PO QAM 03/14/17 [History] Melatonin 15 mg PO BEDTIME 05/07/18 [History] Amoxicillin/Potassium Clav [Augmentin 875-125 Tablet] 1 each PO BID #20 tablet 02/01/19 [Rx] Ipratropium [Atrovent] 0.5 mg .XX TID #30 neb 02/01/19 [Rx] clonazePAM [Clonazepam] 1 mg PO BID #30 tab.rapdis 02/01/19 [Rx] Past Medical History HEENT History: Reports: Impaired Vision, Other (See Below) Other HEENT History: nearsighted and farsighted Cardiovascular History: Reports: CAD, Heart Failure, Hypertension, Pacemaker, Stents Respiratory History: Reports: COPD, Other (See Below) Other Respiratory History: Emphysema Gastrointestinal History: Reports: GI Bleed, PUD Genitourinary History: Reports: Renal Disease Musculoskeletal History: Reports: Arthritis, Back Pain, Chronic, Fracture, Neck Pain, Chronic Neurological History: Reports: TIA, Other (See Below) Other Neuro History: nerve damage because of the accident Psychiatric History: Reports: Anxiety Endocrine/Metabolic History: Reports: Diabetes, Type II Hematologic History: Reports: Transfusion Reaction, Other (See Below) Other Hematologic History: Antibody issues - See Scan doc. - Infectious Disease History Infectious Disease History: Reports: Hepatitis C, Mumps - Past Surgical History Cardiovascular Surgical History: Reports: Carotid Stents, Pacer GI Surgical History: Reports: Other (See Below) Other GI Surgeries/Procedures: splenectomy Social & Family History - Family History Family Medical History: Noncontributory - Caffeine Use Caffeine Use: Reports: Coffee - Living Situation & Occupation Living situation: Reports: , Other Occupation: Disabled ED ROS GENERAL - Review of Systems Review Of Systems: ROS reveals no pertinent complaints other than HPI. ED EXAM, GENERAL - Physical Exam Exam: See Below Exam Limited By: No Limitations General Appearance: Alert, WD/WN, Mild Distress Eye Exam: Bilateral Eye: EOMI, PERRL Ears: Normal External Exam Nose: Normal Inspection Throat/Mouth: Normal Inspection Head: Atraumatic, Normocephalic Neck: Normal Inspection Respiratory/Chest: No Respiratory Distress, Lungs Clear, Normal Breath Sounds Cardiovascular: Normal Peripheral Pulses, Regular Rate, Rhythm GI/Abdominal: Normal Bowel Sounds Course - Vital Signs Last Recorded V/S: Last Vital Signs Temp Pulse 99 02/01/19 09:04 Resp 38 H 02/01/19 08:40 BP 157/98 H 02/01/19 09:04 Pulse Ox 86 L 02/01/19 09:04 - Orders/Labs/Meds Orders: Active Orders 24 hr Category Date Time Status Chest 1V Frontal [CR] Stat Exams 08/02/19 08:39 Taken cefTRIAXone [Rocephin] Med 02/01/19 10:00 Active 1 gm IVPUSH Q24H Medication Orders Ceftriaxone Sodium (Rocephin) 1 gm IVPUSH Q24H GIACOMO Last Admin: 02/01/19 09:35 Dose: 1 gm Labs: Laboratory Tests 02/01/19 02/01/19 Range/Units 08:50 08:50 WBC 16.3 H (4.0-11.0) K/uL RBC 4.33 L (4.50-6.50) M/uL Hgb 13.8 (13.0-18.0) g/dL Hct 43.1 (40.0-54.0) % MCV 100 H (76-96) fL MCH 31.9 (27.0-32.0) pg MCHC 32.0 (31.0-35.0) g/dL RDW 15.4 (11.0-16.0) % Plt Count 294 (150-400) K/uL MPV 10.5 H (6.0-10.0) fL Neut % (Auto) 72.6 H (45.0-70.0) % Lymph % (Auto) 17.3 L (20.0-40.0) % [place] % (Auto) 9.0 (3.0-10.0) % Eos % (Auto) 0.9 L (1.0-5.0) % Baso % (Auto) 0.2 (0.0-0.5) % Neut # (Auto) 11.87 H (2.00-7.50) K/uL Lymph # (Auto) 2.83 (1.50-4.00) K/uL [place] # (Auto) 1.47 H (0.20-0.80) K/uL Eos # (Auto) 0.14 (0.04-0.40) K/uL Baso # (Auto) 0.03 (0.02-0.10) K/uL Sodium 145 (136-145) mmol/L Potassium 3.9 (3.5-5.1) mmol/L Chloride 104 (98-107) mmol/L Carbon Dioxide 33.5 H (21.0-32.0) mmol/L Anion Gap 11.4 (5.0-15.0) mmol/L BUN 22 D (8-26) mg/dL Creatinine 1.62 H (0.70-1.30) mg/dL Est Cr Clr Drug Dosing TNP Estimated GFR (MDRD) 43 L (>60) MLS/MIN BUN/Creatinine Ratio 13.6 (6-25) Glucose 129 H (74-100) mg/dL Calcium 8.3 L (8.5-10.1) mg/dL Total Bilirubin 0.3 (0.0-1.0) mg/dL AST 25 (15-37) U/L ALT 34 (12-78) U/L Alkaline Phosphatase 149 H (46-116) U/L Total Protein 7.2 (6.4-8.2) g/dL Albumin 3.2 L (3.4-5.0) g/dL Globulin 4.0 (2.2-4.2) g/dL Albumin/Globulin Ratio 0.8 (0.8-2.0) TSH, Ultra Sensitive 1.779 D (0.358-3.740) uIU/mL Meds: Medications Generic Name Dose Route Start Last Admin Trade Name Freq PRN Reason Stop Dose Admin Ceftriaxone Sodium 1 gm 02/01/19 10:00 02/01/19 09:35 Rocephin IVPUSH 1 gm Q24H GIACOMO Administration Discontinued Medications Generic Name Dose Route Start Last Admin Trade Name Freq PRN Reason Stop Dose Admin Ceftriaxone Sodium Confirm 02/01/19 09:38 02/01/19 09:57 Rocephin Administered 02/01/19 09:39 Not Given Dose 1 gm .ROUTE .STK-MED ONE Lorazepam Confirm 02/01/19 09:00 02/01/19 09:25 Ativan Administered 02/01/19 09:01 Not Given Dose 2 mg .ROUTE .STK-MED ONE Lorazepam 1 mg 02/01/19 09:24 02/01/19 09:45 Ativan IVPUSH 02/01/19 09:25 1 mg ONETIME ONE Administration Methylprednisolone Sodium Succinate 125 mg 02/01/19 09:24 02/01/19 09:35 Solu-Medrol IVPUSH 02/01/19 09:25 125 mg ONETIME ONE Administration Methylprednisolone Sodium Succinate Confirm 02/01/19 09:33 02/01/19 09:57 Solu-Medrol Administered 02/01/19 09:34 Not Given Dose 125 mg .ROUTE .STK-MED ONE - Re-Assessments/Exams Free Text/Narrative Re-Assessment/Exam: Patient oxygen decreased to 2L. Given duoneb and monitoring. Labs and CXR ordered. Patient improved greatly with nebulizer. Departure - Departure Time of Disposition: 10:30 Disposition: Home, Self-Care 01 Condition: Good Clinical Impression: Anxiety COPD (chronic obstructive pulmonary disease) Qualifiers: COPD type: unspecified COPD Qualified Code(s): J44.9 - Chronic obstructive pulmonary disease, unspecified - Discharge Information Prescriptions: Amoxicillin/Potassium Clav [Augmentin 875-125 Tablet] 1 each PO BID #20 tablet clonazePAM [Clonazepam] 1 mg PO BID #30 tab.rapdis Ipratropium [Atrovent] 0.5 mg .XX TID #30 neb Instructions: Ipratropium solution for inhalation, How to Use a Nebulizer, Adult Referrals: PCP,None [Primary Care Provider] - Forms: ED Department Discharge Additional Instructions: Use the Ipratroprium (Atrovent) every 4-6 hours. When you are feeling short of breath you can have another nebulizer. Quitting smoking is very important as well. Follow up in the clinic next week unless you are feeling worse again. If you do purchase an oxygen saturation machine, your number should be between 88% to 92%. Stop taking the Ativan (lorazepam) and start taking the Clonodine for the anxiety, this will last longer. If you have any questions or concerns please do not hesitate to contact he clinic or the hospital staff. You were also given an IV dose of Rocephin (an antibiotic), Lorazepam, and Solumedrol (steroid) in the ER. - Problem List & Annotations (1) Anxiety SNOMED Code(s): 93912381 Code(s): F41.9 - ANXIETY DISORDER, UNSPECIFIED Status: Chronic Priority: High (2) COPD (chronic obstructive pulmonary disease) SNOMED Code(s): 22714517 Code(s): J44.9 - CHRONIC OBSTRUCTIVE PULMONARY DISEASE, UNSPECIFIED Status : Chronic Priority: High Annotation/Comment:: 08/07/16 - 1. Congestive heart failure, 2. Chronic obstructive pulonary disease, 3. Possible early stage sepsis Qualifiers: Qualified Code(s): J44.9 - Chronic obstructive pulmonary disease, unspecified - Problem List Review Problem List Initiated/Reviewed/Updated: Yes - My Orders Last 24 Hours: My Active Orders 02/01/19 08:39 Chest 1V Frontal [CR] Stat 02/01/19 10:00 cefTRIAXone [Rocephin] 1 gm IVPUSH Q24H - Assessment/Plan Last 24 Hours: My Active Orders 02/01/19 08:39 Chest 1V Frontal [CR] Stat 02/01/19 10:00 cefTRIAXone [Rocephin] 1 gm IVPUSH Q24H Plan: Patient meds adjusted from lorazepan PRN to clonazepam BID. Patient given nebulizer machine and ipratropium. Counseled on scheduled use and management of COPD and anxiety. Patient to f/u in clinic as directed. RTC and ER as needed if symptoms return.
--- NOTE | 2019-02-01 11:36 | CR ---
DATE OF SERVICE: 02/01/19 CLINICAL DATA: shortness of breath AP PORTABLE CHEST: Comparison is made to a prior exam dated 01/10/19. The heart size is at the upper limits of normal. The aorta is calcified and ectatic. The cardiac pacer and pacer wires remain unchanged in position. The pulmonary vasculature is prominent with marked increase in prominence compared to the prior exam. There is also cephalization of flow. Findings are consistent with pulmonary venous congestion. There are mild interstitial changes throughout both lungs consistent with interstitial edema. Congestive failure is suspected. There are atelectatic changes in both lung bases. No pneumothorax. No pleural effusions. [id number] [facility]
== END 2019-02-01 10:35 | disposition home or self-care (01) ==
LOC: LB.ED 08:33
DX: J44.9 Chronic obstructive pulmonary disease, unspecified (principal); F41.9 Anxiety disorder, unspecified; I11.0 Hypertensive heart disease with heart failure; I50.9 Heart failure, unspecified; I25.10 Atherosclerotic heart disease of native coronary artery without angina pectoris; E11.9 Type 2 diabetes mellitus without complications; Z88.8 Allergy status to other drugs, medicaments and biological substances; Z79.899 Other long term (current) drug therapy; Z95.0 Presence of cardiac pacemaker; Z86.73 Personal history of transient ischemic attack (TIA), and cerebral infarction without residual deficits
CPT/HCPCS: 36415; 71045; 80053; 84443; 85025; 96374; 96375; 96376; 99284; A0425; A0429; J0696; J2060; J2930; J7620-GY